=== PATIENT | male | born 1935 | race Two or more races ===

== ENCOUNTER → 2016-04-03 | Outpatient (CLI) | payer MEDICARE, OTHER ==
[~2016-04-03] MED LIST: ASPI-231 PO; CILO100T PO; CLON0.1T PO; FURO20TA3 PO; GABA-494 PO; HYDR-2651 PO; Isosorbide Mononitrate PO; LISI10TA6 PO; METOPROLOL PO; PANT40TA2 PO; SIMV-8 PO; SUCR1TAB38 OR; TAMS0.4C36 PO
[2016-04-03 11:17] LABS: DEFINITIVE VIEW TRANSMISSION; Hematocrit 36.8 % (41.0-53.0); Hemoglobin 11.7 g/dL (13.5-17.5); Mean Corpuscular Hemoglobin 25.3 pg (28.0-32.0); Mean Corpuscular Hgb Conc. 31.9 g/dL (32.0-36.0); Mean Corpuscular Volume 79.2 fL (80.0-100.0); Mean Platelet Volume 9.1 fL (7.4-10.4); Platelet Count (auto) 223 10^3/uL (140-450); Red Cell Distribution Width 16.3 % (11.6-16.0); White Blood Cell 11.9 10^3/uL (4.4-10.8)
[2016-04-03 11:23] LABS: INR 1.1 (0.9-1.15); Prothrombin Time 11.3 sec (9.37-12.3)
[2016-04-03 11:37] LABS: Metamyelocytes % 0; Myelocytes % 0; Promyelocytes % 0; Reactive Lymphocytes 0
[2016-04-03 11:41] LABS: Albumin 3.8 g/dL (3.4-5.0); BUN/Creatinine Ratio 20.1; Bilirubin, Total 0.9 mg/dL (0.2-1.0); Calcium 9.1 mg/dL (8.5-10.1); Potassium 4.1 mmol/L (3.5-5.1); Total Protein 7.5 g/dL (6.4-8.2)
[2016-04-03 15:45] LABS: Anisocytosis Slight; Burr Cells FEW; Hypochromia Slight; Ovalocytes FEW; Platelet Estimate Adequate
== END | disposition home or self-care (01) ==
LOC: LAB 10:00
PROVIDERS: ATTEND Internal Medicine Cardiovascular Disease
DX: Z01.812 Encounter for preprocedural laboratory examination (principal); I82.1 Thrombophlebitis migrans
CPT/HCPCS: 36415; 80053; 85007; 85027; 85610; 85730

== ENCOUNTER 2016-04-05 10:29 | Day surgery (SDC) | payer MEDICARE, OTHER ==
[2016-04-05] MEDS ORDERED: ceFAZolin 1GM/50ML D5W 50 ML IV ONE (11:45)
[2016-04-05] MEDS ORDERED: LIDOCAINE 2%HCL (LOCAL ANESTH.) INJ 20ML MDV ONE (13:54)
[2016-04-05] MEDS ORDERED: VANCOMYCIN 1GM/250ML D5W 250 ML IV ONE (13:55)
[2016-04-05] MEDS ORDERED: VANCOMYCIN HCL 1000 MG VL ONE (13:56)
[2016-04-05] MEDS ORDERED: MIDAZOLAM HCL 1MG/1ML-2 ML VIAL ONE (14:09)
[2016-04-05] MEDS ORDERED: fentaNYL CITRATE 100 MCG/2 ML VL ONE (14:09)
[2016-04-06] MEDS ORDERED: VANCOMYCIN 1GM/250ML D5W 250 ML IV ONE (14:00)
== END 2016-04-05 17:48 | disposition home or self-care (01) ==
LOC: CATH 10:29
PROVIDERS: ATTEND Internal Medicine Cardiovascular Disease
DX: T82.111A Breakdown (mechanical) of cardiac pulse generator (battery), initial encounter (principal); I50.9 Heart failure, unspecified; K21.9 Gastro-esophageal reflux disease without esophagitis; Z95.0 Presence of cardiac pacemaker; I10 Essential (primary) hypertension; N40.0 Benign prostatic hyperplasia without lower urinary tract symptoms; I25.10 Atherosclerotic heart disease of native coronary artery without angina pectoris; E11.9 Type 2 diabetes mellitus without complications
CPT/HCPCS: 33208; C1785; J0690; J2250; J3010; J3370; J7030; 99152

== ENCOUNTER → 2016-06-21 | Outpatient (CLI) | payer MEDICARE, OTHER ==
[~2016-06-21] MED LIST changes: +FURO40TA4 PO; +METO-169 PO; +POTA10TA51 PO; +SUCR1TAB PO
[2016-06-21 11:09] LABS: Basophils # (auto) 0 uL; Basophils % (auto) 0.2 % (0.0-2.0); DEFINITIVE VIEW TRANSMISSION; Eosinophils # (auto) 0.1 uL; Eosinophils % (auto) 0.3 % (0.0-7.0); Hematocrit 37.5 % (41.0-53.0); Hemoglobin 12.2 g/dL (13.5-17.5); Lymphocytes # (auto) 6.4 uL; Lymphocytes % (auto) 31.7 % (10.0-50.0); Mean Corpuscular Hgb Conc. 32.5 g/dL (32.0-36.0); Mean Corpuscular Volume 83.1 fL (80.0-100.0); Mean Platelet Volume 8.1 fL (7.4-10.4); Monocytes # (auto) 1.2 uL; Monocytes % (auto) 6.1 % (0.0-12.0); Neutrophils # (auto) 12.5 uL; Neutrophils % (auto) 61.7 % (37.0-80.0); Platelet Count (auto) 266 10^3/uL (140-450); Red Cell Distribution Width 20.4 % (11.6-16.0); White Blood Cell 20.3 10^3/uL (4.4-10.8)
[2016-06-21 11:35] LABS: Albumin 3.5 g/dL (3.4-5.0); BUN/Creatinine Ratio 21.5; Bilirubin, Total 1.2 mg/dL (0.2-1.0); Calcium 9.2 mg/dL (8.5-10.1); Total Protein 7.9 g/dL (6.4-8.2)
== END | disposition home or self-care (01) ==
LOC: LAB 10:21
PROVIDERS: ATTEND Internal Medicine
DX: R30.0 Dysuria (principal); R50.9 Fever, unspecified
CPT/HCPCS: 36415; 80053; 85025; 87040; 87086

== ENCOUNTER → 2016-07-04 | Outpatient (CLI) | payer MEDICARE, OTHER ==
[~2016-07-04] VITALS: Ht 154.9 cm; Wt 72.6 kg
[~2016-07-04] MED LIST changes: +ADENOSINE 61 MG in GIVE UN-DILUTED 0 ML IV STA; -FURO20TA3 PO; -HYDR-2651 PO; -METOPROLOL PO; -SUCR1TAB38 OR
== END | disposition home or self-care (01) ==
LOC: XY 10:57
PROVIDERS: ATTEND Internal Medicine Cardiovascular Disease
DX: I20.9 Angina pectoris, unspecified (principal)
CPT/HCPCS: 78452; 93017; A9500; J0153

== ENCOUNTER → 2016-09-26 | Day surgery (SDC) | payer MEDICARE, OTHER ==
[2016-09-22 10:04] LABS: CONDITION Y; DEFINITIVE SEE PRINTOUT; Hematocrit 37.8 % (41.0-53.0); Hemoglobin 12.3 g/dL (13.5-17.5); Mean Corpuscular Hemoglobin 28.4 pg (28.0-32.0); Mean Corpuscular Hgb Conc. 32.5 g/dL (32.0-36.0); Mean Corpuscular Volume 87.1 fL (80.0-100.0); Mean Platelet Volume 7.9 fL (7.4-10.4); Platelet Count (auto) 236 10^3/uL (140-450); Red Cell Distribution Width 16.6 % (11.6-16.0); White Blood Cell 14.3 10^3/uL (4.4-10.8)
[2016-09-22 10:12] LABS: Metamyelocytes % 0; Myelocytes % 0; Promyelocytes % 0; Reactive Lymphocytes 0
[2016-09-22 10:13] LABS: Albumin 3.7 g/dL (3.4-5.0); BUN/Creatinine Ratio 12.4; Calcium 8.6 mg/dL (8.5-10.1); Potassium 4.1 mmol/L (3.5-5.1)
[2016-09-22 10:15] LABS: Bilirubin, Total 0.7 mg/dL (0.2-1.0); Total Protein 7.9 g/dL (6.4-8.2)
[2016-09-22 10:19] LABS: INR 1.02 (0.9-1.15); Partial Thromboplastin Time 26.1 sec (22.64-33.71); Prothrombin Time 11.1 sec (9.37-12.3)
[2016-09-22 10:25] LABS: Platelet Estimate Adequate; RBC Morphology Normal
[2016-09-22 10:26] LABS: Urine Bilirubin Negative (Negative); Urine Color Yellow (Yellow); Urine Glucose Normal (Normal); Urine Ketone Negative (Negative); Urine RBC 2 /hpf (0 - 3); Urine Squamous Epithelial Cell FEW /hpf (<5); Urine Urobilinogen Normal (Negative); Urine WBC Clumps PRESENT /hpf (None Seen)
[2016-09-22 10:27] LABS: Urine Blood 1+ /uL (Negative); Urine Nitrite POSITIVE (Negative)
[~2016-09-26] VITALS: Ht 152.4 cm; Wt 75.3 kg
[~2016-09-26] MED LIST changes: -ADENOSINE 61 MG in GIVE UN-DILUTED 0 ML IV STA; +DEXAMETHASONE SOD PHOS 10MG/1ML VIAL INJ ONE; +GENTAMICIN SULF 80 MG/2 ML VIAL IV ONE; +HYDROmorphone HCL 2 MG/ML VL IV PRN; +KETOROLAC TROMETH 30 MG/ML 1ML VIAL IV ONE; +LABETALOL HCL 5 MG/ML 4ML SYRINGE IV PRN; +MEPERIDINE HCL (50 MG/ML) 1 ML VIAL ONE; +MIDAZOLAM HCL 1MG/1ML-2 ML VIAL IV PRN; +MIDAZOLAM HCL 1MG/1ML-2 ML VIAL ONE; +MORPHINE SULF INJ 2 MG/ML SYRINGE 1ML IV PRN; +ONDANSETRON HCL 4 MG/2 ML VIAL IV ONE; +PHENYLEPHRINE HCL 10 MG/ML VL IV ONE; +PROPOFOL 10 MG/ML 20 ML IV ONE; +SUCCINYLCHOLINE CHLORIDE 20 MG/ML 10ML VIAL IV ONE; +ceFAZolin 1GM/50ML D5W 50 ML IV ONE; +ePHEDrine SULFATE 50 MG/ML AMP IV PRN; +fentaNYL CITRATE 100 MCG/2 ML VL ONE
[2016-09-26 15:21] VITALS: BP 137/74
== END | disposition home or self-care (01) ==
LOC: SUR 09:33
PROVIDERS: ATTEND Urology
DX: N40.1 Benign prostatic hyperplasia with lower urinary tract symptoms (principal); I50.9 Heart failure, unspecified; Z95.1 Presence of aortocoronary bypass graft; Z95.0 Presence of cardiac pacemaker; Z87.891 Personal history of nicotine dependence; Z90.49 Acquired absence of other specified parts of digestive tract; K21.9 Gastro-esophageal reflux disease without esophagitis; Z86.2 Personal history of diseases of the blood and blood-forming organs and certain disorders involving the immune mechanism
CPT/HCPCS: 36415; 52601; 80053; 81001; 85007; 85027; 85610; 85730; 87086; 87088; 87186; J0330; J0690; J1100; J1580; J2175; J2250; J2370; J2704; J3010; 87070; 87075

== ENCOUNTER 2016-10-20 17:25 | Emergency (ER) | payer MEDICARE, OTHER ==
[~2016-10-20] VITALS: Ht 154.9 cm; Wt 67.1 kg
[~2016-10-20 17:25] MED LIST changes: -DEXAMETHASONE SOD PHOS 10MG/1ML VIAL INJ ONE; -GENTAMICIN SULF 80 MG/2 ML VIAL IV ONE; -HYDROmorphone HCL 2 MG/ML VL IV PRN; -KETOROLAC TROMETH 30 MG/ML 1ML VIAL IV ONE; -LABETALOL HCL 5 MG/ML 4ML SYRINGE IV PRN; -MEPERIDINE HCL (50 MG/ML) 1 ML VIAL ONE; -MIDAZOLAM HCL 1MG/1ML-2 ML VIAL IV PRN; -MIDAZOLAM HCL 1MG/1ML-2 ML VIAL ONE; -MORPHINE SULF INJ 2 MG/ML SYRINGE 1ML IV PRN; -ONDANSETRON HCL 4 MG/2 ML VIAL IV ONE; -PHENYLEPHRINE HCL 10 MG/ML VL IV ONE; -PROPOFOL 10 MG/ML 20 ML IV ONE; -SUCCINYLCHOLINE CHLORIDE 20 MG/ML 10ML VIAL IV ONE; -ceFAZolin 1GM/50ML D5W 50 ML IV ONE; -ePHEDrine SULFATE 50 MG/ML AMP IV PRN; -fentaNYL CITRATE 100 MCG/2 ML VL ONE
[2016-10-20 19:26] LABS: Basophils # (auto) 0.1 uL; Basophils % (auto) 0.6 % (0.0-2.0); CONDITION Y; DEFINITIVE SEE PRINTOUT; Eosinophils # (auto) 0.3 uL; Eosinophils % (auto) 1.8 % (0.0-7.0); Hematocrit 30.6 % (41.0-53.0); Hemoglobin 10.3 g/dL (13.5-17.5); Lymphocytes # (auto) 8.3 uL; Lymphocytes % (auto) 53.2 % (10.0-50.0); Mean Corpuscular Hemoglobin 28.3 pg (28.0-32.0); Mean Corpuscular Hgb Conc. 33.5 g/dL (32.0-36.0); Mean Corpuscular Volume 84.6 fL (80.0-100.0); Mean Platelet Volume 7.2 fL (7.4-10.4); Monocytes # (auto) 1.1 uL; Monocytes % (auto) 7.3 % (0.0-12.0); Neutrophils # (auto) 5.8 uL; Neutrophils % (auto) 37.1 % (37.0-80.0); Platelet Count (auto) 288 10^3/uL (140-450); White Blood Cell 15.7 10^3/uL (4.4-10.8)
[2016-10-20 19:37] LABS: INR 1.01 (0.9-1.15); Partial Thromboplastin Time 28.3 sec (22.64-33.71)
[2016-10-20 19:39] LABS: Albumin 3.1 g/dL (3.4-5.0); BUN/Creatinine Ratio 19.5; Bilirubin, Total 0.5 mg/dL (0.2-1.0); Calcium 8.3 mg/dL (8.5-10.1); Potassium 4.6 mmol/L (3.5-5.1); Total Protein 6.8 g/dL (6.4-8.2)
[2016-10-20 20:37] VITALS: BP 150/73
[2016-10-20] MEDS ORDERED: cefTRIAXone 1GM/50ML D5W 50 ML IV ONE (21:00)
== END 2016-10-20 23:35 | disposition home or self-care (01) ==
LOC: ER 17:27
DX: N45.1 Epididymitis (principal); N45.2 Orchitis; Z79.899 Other long term (current) drug therapy; Z79.82 Long term (current) use of aspirin
CPT/HCPCS: 36415; 76870; 80053; 85025; 85610; 85730; 96365; 99285; J0696; J7030

== ENCOUNTER → 2017-01-25 | Outpatient (CLI) | payer MEDICARE, OTHER | END | disposition home or self-care (01) | LOC: LAB 15:15 | PROVIDERS: ATTEND Urology | DX: N40.0 Benign prostatic hyperplasia without lower urinary tract symptoms (principal); J44.9 Chronic obstructive pulmonary disease, unspecified | CPT/HCPCS: 87086; 87088; 87186 ==

== ENCOUNTER → 2017-03-05 | Outpatient (CLI) | payer MEDICARE, OTHER ==
[~2017-03-05] MED LIST changes: -GABA-494 PO; +GABA100C9 PO
[2017-03-05 09:17] LABS: Hematocrit 34.9 % (41.0-53.0); Hemoglobin 11.2 g/dL (13.5-17.5); Mean Corpuscular Hemoglobin 26.4 pg (28.0-32.0); Mean Corpuscular Hgb Conc. 32.1 g/dL (32.0-36.0); Mean Corpuscular Volume 82.2 fL (80.0-100.0); Platelet Count (auto) 269 10^3/uL (140-450); Red Blood Cells 4.25 10^6/uL (4.5-5.90); Red Cell Distribution Width 16.8 % (11.8-14.3); White Blood Cell 12.5 10^3/uL (4.4-10.8)
[2017-03-05 09:22] LABS: Cholesterol 121 mg/dL (< 200); HDL Cholesterol 60 mg/dL (40-59); LDL Cholesterol 59 mg/dL (< 100); Triglycerides 67 mg/dL (< 150)
[2017-03-05 09:45] LABS: Band Neutrophils % (manual) 0; Basophils % (manual) 0 (0.0-2.0); Metamyelocytes % 0
[2017-03-05 09:46] LABS: Blast Cells 0; Myelocytes % 0; Promyelocytes % 0; Reactive Lymphocytes 0
[2017-03-05 10:06] LABS: Free T4 (Free Thyroxine) 1.14 ng/dL (0.89-1.76)
[2017-03-05 10:29] LABS: Eosinophils % (manual) 1 (0-7); Lymphocytes % (manual) 58 (10.0-50.0); Monocytes % (manual) 5 (0-12)
[2017-03-05 10:36] LABS: Prostate Specific Antigen 5.31 ng/mL (0.0-4.0)
== END | disposition home or self-care (01) ==
LOC: LAB 08:33
PROVIDERS: ATTEND Internal Medicine
DX: E11.9 Type 2 diabetes mellitus without complications (principal); I10 Essential (primary) hypertension; N40.0 Benign prostatic hyperplasia without lower urinary tract symptoms
CPT/HCPCS: 36415; 80061; 83036; 84153; 84154; 84439; 84443; 85007; 85027

== ENCOUNTER → 2017-04-16 | Day surgery (SDC) | payer MEDICARE, OTHER ==
[2017-04-13 10:03] LABS: Hemoglobin 11.8 g/dL (13.5-17.5); White Blood Cell 15.1 10^3/uL (4.4-10.8)
[2017-04-13 10:05] LABS: Hematocrit 36.8 % (41.0-53.0); Mean Corpuscular Hemoglobin 26.7 pg (28.0-32.0); Mean Corpuscular Hgb Conc. 32.1 g/dL (32.0-36.0); Mean Corpuscular Volume 83.1 fL (80.0-100.0); Platelet Count (auto) 220 10^3/uL (140-450); Red Blood Cells 4.43 10^6/uL (4.5-5.90); Red Cell Distribution Width 16.5 % (11.8-14.3)
[2017-04-13 10:18] LABS: Urine Bacteria MANY /hpf (None Seen); Urine Blood 1+ /uL (Negative); Urine Mucus FEW (None Seen); Urine Specific Gravity 1.017 (1.001-1.035); Urine WBC 1839 /hpf (0 - 3); Urine WBC Clumps PRESENT /hpf (None Seen)
[2017-04-13 10:19] LABS: Albumin 3.9 g/dL (3.4-5.0); BUN/Creatinine Ratio 22.9; Potassium 4.1 mmol/L (3.5-5.1)
[2017-04-13 10:22] LABS: Bilirubin, Total 0.6 mg/dL (0.2-1.0)
[2017-04-13 10:25] LABS: Prothrombin Time 10.9 sec (9.37-12.3)
[2017-04-13 11:25] LABS: Band Neutrophils % (manual) 0; Basophils % (manual) 0 (0.0-2.0); Blast Cells 0; Metamyelocytes % 0; Myelocytes % 0; Promyelocytes % 0; Reactive Lymphocytes 0
[2017-04-13 15:42] LABS: Monocytes % (manual) 4 (0-12)
[2017-04-13 15:44] LABS: Eosinophils % (manual) 2 (0-7); Lymphocytes % (manual) 63 (10.0-50.0)
[~2017-04-16] VITALS: Ht 152.4 cm; Wt 72.6 kg
[~2017-04-16] MED LIST changes: +ceFAZolin 1GM/50ML 50 ML IV ONE
== END | disposition home or self-care (01) ==
LOC: SUR 07:15
PROVIDERS: ATTEND Urology
DX: N40.1 Benign prostatic hyperplasia with lower urinary tract symptoms (principal); Z53.8 Procedure and treatment not carried out for other reasons; N39.0 Urinary tract infection, site not specified; E66.9 Obesity, unspecified; Z68.31 Body mass index [BMI] 31.0-31.9, adult; I50.9 Heart failure, unspecified; Z95.1 Presence of aortocoronary bypass graft; J44.9 Chronic obstructive pulmonary disease, unspecified; Z87.891 Personal history of nicotine dependence; Z95.0 Presence of cardiac pacemaker; Z90.49 Acquired absence of other specified parts of digestive tract
CPT/HCPCS: 36415; 80053; 81001; 85007; 85027; 85610; 85730; J0690

== ENCOUNTER → 2017-05-14 | Day surgery (SDC) | payer MEDICARE, OTHER ==
[~2017-05-14] VITALS: Ht 30.5 cm; Wt 0.5 kg
[~2017-05-14] MED LIST changes: +BELLADONNA ALKAL/OPIUM (16.2/30MG) RECT SUPP PR ONE; +DEXAMETHASONE SOD PHOS 10MG/1ML VIAL INJ ONE; +KETOROLAC TROMETH 30 MG/ML 1ML VIAL IV ONE; +KETOROLAC TROMETH 30 MG/ML 1ML VIAL ONE; +LABETALOL HCL 5 MG/ML 4ML SYRINGE IV PRN; +MEPERIDINE HCL (50 MG/ML) 1 ML VIAL ONE; +MIDAZOLAM HCL 1MG/1ML-2 ML VIAL IV PRN; +MIDAZOLAM HCL 1MG/1ML-2 ML VIAL ONE; +MORPHINE SULFATE 4 MG/ML SYR/VIAL IV ONE; +MORPHINE SULFATE 4 MG/ML SYR/VIAL IV PRN; +ONDANSETRON HCL 4 MG/2 ML VIAL IV ONE; +PROPOFOL 10 MG/ML 20 ML IV ONE; +ePHEDrine SULFATE 50 MG/ML AMP IV PRN; +fentaNYL CITRATE 100 MCG/2 ML VL IV ONE; +fentaNYL CITRATE 100 MCG/2 ML VL ONE
[2017-05-14 07:46] LABS: Mean Corpuscular Hgb Conc. 32.5 g/dL (32.0-36.0); Mean Corpuscular Volume 82.2 fL (80.0-100.0); White Blood Cell 12.8 10^3/uL (4.4-10.8)
[2017-05-14 07:51] LABS: Hematocrit 33.9 % (41.0-53.0); Mean Corpuscular Hemoglobin 26.7 pg (28.0-32.0); Platelet Count (auto) 159 10^3/uL (140-450); Red Blood Cells 4.12 10^6/uL (4.5-5.90); Red Cell Distribution Width 15.6 % (11.8-14.3)
[2017-05-14 07:58] LABS: BUN/Creatinine Ratio 23.1; Calcium 8.9 mg/dL (8.5-10.1); Potassium 4.2 mmol/L (3.5-5.1)
[2017-05-14 08:06] LABS: INR 0.97 (0.9-1.15); Partial Thromboplastin Time 25.4 sec (22.64-33.71); Prothrombin Time 10.6 sec (9.37-12.3)
[2017-05-14 08:07] LABS: Band Neutrophils % (manual) 0; Basophils % (manual) 0 (0.0-2.0); Blast Cells 0; Metamyelocytes % 0; Myelocytes % 0; Promyelocytes % 0
[2017-05-14 09:09] LABS: Eosinophils % (manual) 3 (0-7); Lymphocytes % (manual) 50 (10.0-50.0); Monocytes % (manual) 5 (0-12); Reactive Lymphocytes 10
[2017-05-14 12:13] VITALS: BP 156/79
== END | disposition home or self-care (01) ==
LOC: SUR 06:08
PROVIDERS: ATTEND Urology
DX: N40.1 Benign prostatic hyperplasia with lower urinary tract symptoms (principal); I50.9 Heart failure, unspecified; Z95.1 Presence of aortocoronary bypass graft; J44.9 Chronic obstructive pulmonary disease, unspecified; Z87.891 Personal history of nicotine dependence
CPT/HCPCS: 36415; 52601; 80048; 85007; 85027; 85610; 85730; J0690; J1100; J1885; J2175; J2250; J2704; J3010

== ENCOUNTER → 2017-09-13 | Outpatient (CLI) | payer MEDICARE, OTHER ==
[~2017-09-13] MED LIST changes: -BELLADONNA ALKAL/OPIUM (16.2/30MG) RECT SUPP PR ONE; -DEXAMETHASONE SOD PHOS 10MG/1ML VIAL INJ ONE; -KETOROLAC TROMETH 30 MG/ML 1ML VIAL IV ONE; -KETOROLAC TROMETH 30 MG/ML 1ML VIAL ONE; -LABETALOL HCL 5 MG/ML 4ML SYRINGE IV PRN; -MEPERIDINE HCL (50 MG/ML) 1 ML VIAL ONE; -MIDAZOLAM HCL 1MG/1ML-2 ML VIAL IV PRN; -MIDAZOLAM HCL 1MG/1ML-2 ML VIAL ONE; -MORPHINE SULFATE 4 MG/ML SYR/VIAL IV ONE; -MORPHINE SULFATE 4 MG/ML SYR/VIAL IV PRN; -ONDANSETRON HCL 4 MG/2 ML VIAL IV ONE; -PROPOFOL 10 MG/ML 20 ML IV ONE; -ceFAZolin 1GM/50ML 50 ML IV ONE; -ePHEDrine SULFATE 50 MG/ML AMP IV PRN; -fentaNYL CITRATE 100 MCG/2 ML VL IV ONE; -fentaNYL CITRATE 100 MCG/2 ML VL ONE
[2017-09-13 12:37] LABS: Hemoglobin 10.6 g/dL (13.5-17.5)
[2017-09-13 12:38] LABS: Hematocrit 33.1 % (41.0-53.0); Mean Corpuscular Hemoglobin 25.8 pg (28.0-32.0); Mean Corpuscular Hgb Conc. 31.9 g/dL (32.0-36.0); Mean Corpuscular Volume 81.1 fL (80.0-100.0); Platelet Count (auto) 208 10^3/uL (140-450); Red Blood Cells 4.08 10^6/uL (4.5-5.90); Red Cell Distribution Width 17.7 % (11.8-14.3); White Blood Cell 16.7 10^3/uL (4.4-10.8)
[2017-09-13 12:43] LABS: Band Neutrophils % (manual) 0; Basophils % (manual) 0 (0.0-2.0); Blast Cells 0; Metamyelocytes % 0; Myelocytes % 0; Promyelocytes % 0
[2017-09-13 13:22] LABS: Eosinophils % (manual) 2 (0-7); Lymphocytes % (manual) 61 (10.0-50.0); Monocytes % (manual) 5 (0-12); Reactive Lymphocytes 14
[2017-09-13 13:46] LABS: Albumin 3.6 g/dL (3.4-5.0); Bilirubin, Total 0.4 mg/dL (0.2-1.0); Calcium 8.3 mg/dL (8.5-10.1); Potassium 4.2 mmol/L (3.5-5.1); Total Protein 7.7 g/dL (6.4-8.2)
== END | disposition home or self-care (01) ==
LOC: LAB 12:10
PROVIDERS: ATTEND Internal Medicine
DX: I11.0 Hypertensive heart disease with heart failure (principal); I50.9 Heart failure, unspecified; J44.9 Chronic obstructive pulmonary disease, unspecified; E11.9 Type 2 diabetes mellitus without complications; K21.9 Gastro-esophageal reflux disease without esophagitis; E78.5 Hyperlipidemia, unspecified; Z95.0 Presence of cardiac pacemaker; Z79.899 Other long term (current) drug therapy; Z79.82 Long term (current) use of aspirin
CPT/HCPCS: 36415; 80053; 84439; 84443; 85007; 85027; 87086; 87088; 87186

== ENCOUNTER 2017-09-20 10:42 | Inpatient (IN) | payer MEDICARE, OTHER ==
[~2017-09-20] VITALS: Ht 157.5 cm; Wt 77.0 kg
[2017-09-20] MEDS: SODIUM CHLORIDE 0.9% 1,000 ML IV SCH ×2 (03:00→14:11)
[2017-09-20] MEDS ORDERED: SODIUM CHLORIDE 0.9% 500 ML IV ONE (11:02)
[2017-09-20] MEDS ORDERED: cefTRIAXone 1GM/10ml IVPUSH 10 ML IV ONE ×2 (11:15→14:00)
[2017-09-20 11:23] LABS: Urine Bacteria MANY /hpf (None Seen); Urine Blood TRACE /uL (Negative); Urine Hyaline Cast FEW /lpf (0 - 2); Urine Mucus FEW (None Seen); Urine Specific Gravity 1.013 (1.001-1.035); Urine WBC 297 /hpf (0 - 3)
[2017-09-20 11:42] LABS: Hematocrit 34.9 % (41.0-53.0); Hemoglobin 10.9 g/dL (13.5-17.5); Mean Corpuscular Hgb Conc. 31.4 g/dL (32.0-36.0); Mean Corpuscular Volume 82.8 fL (80.0-100.0); Platelet Count (auto) 298 10^3/uL (140-450); Red Blood Cells 4.22 10^6/uL (4.5-5.90); White Blood Cell 20.3 10^3/uL (4.4-10.8)
[2017-09-20 12:00] LABS: Albumin 3.5 g/dL (3.4-5.0); BUN/Creatinine Ratio 12.8; Bilirubin, Total 0.5 mg/dL (0.2-1.0); Calcium 8.5 mg/dL (8.5-10.1); Potassium 4.3 mmol/L (3.5-5.1); Total Protein 7.6 g/dL (6.4-8.2)
[2017-09-20 12:29] LABS: Band Neutrophils % (manual) 0; Basophils % (manual) 0 (0.0-2.0); Blast Cells 0; Metamyelocytes % 0; Promyelocytes % 0; Reactive Lymphocytes 0
[2017-09-20 12:39] LABS: Lymphocytes % (manual) 73 (10.0-50.0); Monocytes % (manual) 4 (0-12); Myelocytes % 0
[2017-09-20 12:40] LABS: Eosinophils % (manual) 2 (0-7)
[2017-09-20] MEDS ORDERED: HYDROcodone-ACET 5/325MG TAB PO PRN (14:00)
[2017-09-20] MEDS ORDERED: MORPHINE SULFATE 4 MG/ML SYR/VIAL IV PRN (14:00)
[2017-09-20] MEDS ORDERED: cloNIDine HCL 0.1 MG TAB PO PRN ×2 (14:00)
[2017-09-20] MEDS ORDERED: LORazepam 0.5 MG TAB PO PRN (14:00)
[2017-09-20] MEDS ORDERED: TEMAZEPAM 15 MG CAP PO PRN (14:00)
[2017-09-20] MEDS ORDERED: PROMETHAZINE HCL 25 MG/ML 1ML IV PRN (14:00)
[2017-09-20] MEDS ORDERED: ACETAMINOPHEN 500 MG TAB PO PRN (14:00)
[2017-09-20] MEDS ORDERED: NITROGLYCERIN 0.4 MG SL TAB SL PRN (14:00)
[2017-09-20] MEDS ORDERED: MORPHINE SULF INJ 2 MG/ML SYRINGE 1ML IV PRN (14:00)
[2017-09-20] MEDS: GABAPENTIN 100 MG CAP PO SCH ×2 (14:56→21:50)
[2017-09-20 16:43] VITALS: BP 183/83
[2017-09-20] MEDS: TAMSULOSIN HYDROCHLORIDE 0.4 MG CAP PO SCH (17:22)
[2017-09-20] MEDS: SUCRALFATE 1 GM TAB PO SCH (17:22)
[2017-09-20 21:49] VITALS: BP 168/64
[2017-09-20] MEDS: ATORVASTATIN 20 MG TAB PO SCH (21:50)
[2017-09-20] MEDS: METOPROLOL SUCCINATE XL 50 MG TAB PO SCH (22:00)
[2017-09-21 05:09] VITALS: BP 146/65
[2017-09-21 05:46] LABS: Hemoglobin 11.1 g/dL (13.5-17.5); Red Cell Distribution Width 17.8 % (11.8-14.3); White Blood Cell 15.2 10^3/uL (4.4-10.8)
[2017-09-21 05:49] LABS: Hematocrit 34.1 % (41.0-53.0); Mean Corpuscular Hemoglobin 26.3 pg (28.0-32.0); Mean Corpuscular Hgb Conc. 32.4 g/dL (32.0-36.0); Mean Corpuscular Volume 81.2 fL (80.0-100.0); Platelet Count (auto) 252 10^3/uL (140-450)
[2017-09-21 06:20] LABS: Basophils % (manual) 0 (0.0-2.0); Blast Cells 0; Eosinophils % (manual) 0 (0-7); Metamyelocytes % 0; Myelocytes % 0; Promyelocytes % 0; Reactive Lymphocytes 0
[2017-09-21] MEDS: SUCRALFATE 1 GM TAB PO SCH ×2 (06:28→17:11)
[2017-09-21 06:54] LABS: Band Neutrophils % (manual) 1; Lymphocytes % (manual) 69 (10.0-50.0); Monocytes % (manual) 3 (0-12)
[2017-09-21 09:00] VITALS: BP 148/73
[2017-09-21] MEDS: cefTRIAXone 1GM/10ml IVPUSH 10 ML IV SCH (09:54)
[2017-09-21] MEDS: CILOSTAZOL 100 MG TAB PO SCH (09:55)
[2017-09-21] MEDS: GABAPENTIN 100 MG CAP PO SCH ×2 (09:55→21:54)
[2017-09-21] MEDS: PANTOPRAZOLE 40 MG TAB PO SCH (09:58)
[2017-09-21] MEDS: METOPROLOL SUCCINATE XL 50 MG TAB PO SCH ×2 (09:58→21:54)
[2017-09-21] MEDS: LISINOPRIL 20 MG TAB PO SCH (09:59)
[2017-09-21] MEDS: ISOSORBIDE MONONITRATE 60 MG TAB PO SCH (09:59)
[2017-09-21] MEDS: SODIUM CHLORIDE 0.9% 1,000 ML IV SCH ×2 (10:03→20:15)
[2017-09-21 13:00] VITALS: BP 149/70
[2017-09-21 17:00] VITALS: BP 131/54
[2017-09-21] MEDS: TAMSULOSIN HYDROCHLORIDE 0.4 MG CAP PO SCH (17:12)
[2017-09-21] MEDS: ATORVASTATIN 20 MG TAB PO SCH (21:53)
[2017-09-21 21:56] VITALS: BP 127/77
[2017-09-22 05:08] VITALS: BP 144/64
[2017-09-22 05:38] LABS: Hematocrit 31.2 % (41.0-53.0); Mean Corpuscular Hemoglobin 26.2 pg (28.0-32.0); Mean Corpuscular Hgb Conc. 32.2 g/dL (32.0-36.0); Mean Corpuscular Volume 81.2 fL (80.0-100.0); Platelet Count (auto) 237 10^3/uL (140-450); Red Blood Cells 3.84 10^6/uL (4.5-5.90); Red Cell Distribution Width 17.7 % (11.8-14.3); White Blood Cell 15.8 10^3/uL (4.4-10.8)
[2017-09-22 05:45] LABS: Band Neutrophils % (manual) 0; Basophils % (manual) 0 (0.0-2.0); Blast Cells 0; Eosinophils % (manual) 0 (0-7); Metamyelocytes % 0; Myelocytes % 0; Promyelocytes % 0
[2017-09-22 06:06] LABS: Albumin 2.9 g/dL (3.4-5.0); BUN/Creatinine Ratio 17.1; Bilirubin, Total 0.4 mg/dL (0.2-1.0); Calcium 8.1 mg/dL (8.5-10.1); Potassium 4.3 mmol/L (3.5-5.1); Total Protein 6.3 g/dL (6.4-8.2)
[2017-09-22] MEDS: SODIUM CHLORIDE 0.9% 1,000 ML IV SCH ×2 (06:13→16:53)
[2017-09-22] MEDS: SUCRALFATE 1 GM TAB PO SCH ×2 (06:14→17:43)
[2017-09-22] MEDS: ALUM & MAG HYDROX-SIMETH LIQ(MAALOX) 30 ML GT PRN (07:59)
[2017-09-22 09:00] VITALS: BP 152/80
[2017-09-22] MEDS: cefTRIAXone 1GM/10ml IVPUSH 10 ML IV SCH (10:29)
[2017-09-22] MEDS: CILOSTAZOL 100 MG TAB PO SCH (10:30)
[2017-09-22] MEDS: GABAPENTIN 100 MG CAP PO SCH ×2 (10:31→22:38)
[2017-09-22] MEDS: ASPirin-EC 81 mg tab PO SCH (10:31)
[2017-09-22] MEDS: METOPROLOL SUCCINATE XL 50 MG TAB PO SCH ×2 (10:32→22:39)
[2017-09-22] MEDS: LISINOPRIL 20 MG TAB PO SCH (10:33)
[2017-09-22] MEDS: PANTOPRAZOLE 40 MG TAB PO SCH (10:33)
[2017-09-22] MEDS: ISOSORBIDE MONONITRATE 60 MG TAB PO SCH (10:34)
[2017-09-22 11:57] LABS: Lymphocytes % (manual) 70 (10.0-50.0); Monocytes % (manual) 3 (0-12); Reactive Lymphocytes 3
[2017-09-22 13:00] VITALS: BP 166/74
[2017-09-22 17:00] VITALS: BP 145/89
[2017-09-22] MEDS: TAMSULOSIN HYDROCHLORIDE 0.4 MG CAP PO SCH (17:43)
[2017-09-22 22:00] VITALS: BP 155/72
[2017-09-22] MEDS: ATORVASTATIN 20 MG TAB PO SCH (22:38)
[2017-09-23 05:00] VITALS: BP 152/69
[2017-09-23] MEDS: SODIUM CHLORIDE 0.9% 1,000 ML IV SCH ×3 (05:32→21:38)
[2017-09-23 05:38] LABS: Hematocrit 35.3 % (41.0-53.0); Hemoglobin 11.5 g/dL (13.5-17.5); Mean Corpuscular Hemoglobin 26.3 pg (28.0-32.0); Mean Corpuscular Hgb Conc. 32.5 g/dL (32.0-36.0); Mean Corpuscular Volume 81.1 fL (80.0-100.0); Platelet Count (auto) 280 10^3/uL (140-450); Red Blood Cells 4.36 10^6/uL (4.5-5.90); Red Cell Distribution Width 17.8 % (11.8-14.3); White Blood Cell 18.6 10^3/uL (4.4-10.8)
[2017-09-23 05:40] LABS: Band Neutrophils % (manual) 0; Basophils % (manual) 0 (0.0-2.0); Blast Cells 0; Eosinophils % (manual) 0 (0-7); Metamyelocytes % 0; Myelocytes % 0; Promyelocytes % 0
[2017-09-23 05:57] LABS: Albumin 3.4 g/dL (3.4-5.0); BUN/Creatinine Ratio 15.3; Bilirubin, Total 0.5 mg/dL (0.2-1.0); Calcium 8.8 mg/dL (8.5-10.1); Potassium 4.2 mmol/L (3.5-5.1); Total Protein 7.2 g/dL (6.4-8.2)
[2017-09-23] MEDS: SUCRALFATE 1 GM TAB PO SCH ×2 (06:47→17:00)
[2017-09-23] MEDS: ALUM & MAG HYDROX-SIMETH LIQ(MAALOX) 30 ML GT PRN ×2 (06:48→23:58)
[2017-09-23 07:17] LABS: Lymphocytes % (manual) 76 (10.0-50.0); Monocytes % (manual) 2 (0-12); Reactive Lymphocytes 15
[2017-09-23] MEDS: HYDROmorphone HCL 2 MG/ML VL IV PRN ×4 (07:35→16:30)
[2017-09-23 09:00] VITALS: BP 157/81
[2017-09-23] MEDS: CILOSTAZOL 100 MG TAB PO SCH (09:49)
[2017-09-23] MEDS: cefTRIAXone 1GM/10ml IVPUSH 10 ML IV SCH (09:49)
[2017-09-23] MEDS: PANTOPRAZOLE 40 MG TAB PO SCH (09:50)
[2017-09-23] MEDS: LISINOPRIL 20 MG TAB PO SCH (09:50)
[2017-09-23] MEDS: GABAPENTIN 100 MG CAP PO SCH ×2 (09:51→21:39)
[2017-09-23] MEDS: ISOSORBIDE MONONITRATE 60 MG TAB PO SCH (09:51)
[2017-09-23] MEDS: METOPROLOL SUCCINATE XL 50 MG TAB PO SCH ×2 (09:52→21:40)
[2017-09-23 13:00] VITALS: BP 132/75
[2017-09-23 17:00] VITALS: BP 162/74
[2017-09-23] MEDS: TAMSULOSIN HYDROCHLORIDE 0.4 MG CAP PO SCH (17:58)
[2017-09-23] MEDS: ATORVASTATIN 20 MG TAB PO SCH (21:39)
[2017-09-23 22:00] VITALS: BP 158/66
[2017-09-24 05:20] VITALS: BP 156/67
[2017-09-24 05:34] LABS: Hemoglobin 10.7 g/dL (13.5-17.5); Mean Corpuscular Volume 81.2 fL (80.0-100.0); Platelet Count (auto) 235 10^3/uL (140-450)
[2017-09-24 05:36] LABS: Hematocrit 32.7 % (41.0-53.0); Mean Corpuscular Hemoglobin 26.5 pg (28.0-32.0); Mean Corpuscular Hgb Conc. 32.6 g/dL (32.0-36.0); Red Blood Cells 4.02 10^6/uL (4.5-5.90); Red Cell Distribution Width 17.8 % (11.8-14.3)
[2017-09-24 05:43] LABS: Basophils % (manual) 0 (0.0-2.0); Blast Cells 0; Eosinophils % (manual) 0 (0-7); Metamyelocytes % 0; Myelocytes % 0; Promyelocytes % 0; Reactive Lymphocytes 0
[2017-09-24 05:54] LABS: Albumin 3.1 g/dL (3.4-5.0); Calcium 8.2 mg/dL (8.5-10.1)
[2017-09-24 05:56] LABS: BUN/Creatinine Ratio 19.8
[2017-09-24 05:59] LABS: Bilirubin, Total 0.5 mg/dL (0.2-1.0); Total Protein 6.5 g/dL (6.4-8.2)
[2017-09-24] MEDS: SUCRALFATE 1 GM TAB PO SCH ×2 (06:31→18:20)
[2017-09-24 06:38] LABS: Band Neutrophils % (manual) 1; Lymphocytes % (manual) 71 (10.0-50.0); Monocytes % (manual) 4 (0-12)
[2017-09-24 08:00] VITALS: BP 122/64
[2017-09-24] MEDS: cefTRIAXone 1GM/10ml IVPUSH 10 ML IV SCH (10:43)
[2017-09-24] MEDS: ASPirin-EC 81 mg tab PO SCH (10:44)
[2017-09-24] MEDS: CILOSTAZOL 100 MG TAB PO SCH (10:45)
[2017-09-24] MEDS: GABAPENTIN 100 MG CAP PO SCH ×2 (10:45→22:23)
[2017-09-24] MEDS: ISOSORBIDE MONONITRATE 60 MG TAB PO SCH (10:45)
[2017-09-24] MEDS: PANTOPRAZOLE 40 MG TAB PO SCH (10:45)
[2017-09-24] MEDS: METOPROLOL SUCCINATE XL 50 MG TAB PO SCH ×2 (10:46→22:24)
[2017-09-24] MEDS: LISINOPRIL 20 MG TAB PO SCH (10:47)
[2017-09-24 13:00] VITALS: BP 171/77
[2017-09-24 17:00] VITALS: BP 158/72
[2017-09-24] MEDS: SODIUM CHLORIDE 0.9% 1,000 ML IV SCH ×2 (18:20→18:21)
[2017-09-24] MEDS: TAMSULOSIN HYDROCHLORIDE 0.4 MG CAP PO SCH (18:20)
[2017-09-24 22:00] VITALS: BP 143/73
[2017-09-24] MEDS: ATORVASTATIN 20 MG TAB PO SCH (22:51)
[2017-09-25] MEDS: ALUM & MAG HYDROX-SIMETH LIQ(MAALOX) 30 ML GT PRN (01:43)
[2017-09-25] MEDS: SODIUM CHLORIDE 0.9% 1,000 ML IV SCH ×2 (03:46→13:46)
[2017-09-25 05:30] VITALS: BP 141/72
[2017-09-25 05:53] LABS: Red Cell Distribution Width 17.8 % (11.8-14.3)
[2017-09-25 05:57] LABS: Hematocrit 33.7 % (41.0-53.0); Mean Corpuscular Hemoglobin 26.3 pg (28.0-32.0); Mean Corpuscular Hgb Conc. 32.7 g/dL (32.0-36.0); Mean Corpuscular Volume 80.6 fL (80.0-100.0); Platelet Count (auto) 219 10^3/uL (140-450); Red Blood Cells 4.18 10^6/uL (4.5-5.90); White Blood Cell 16.6 10^3/uL (4.4-10.8)
[2017-09-25 06:14] LABS: Band Neutrophils % (manual) 0; Basophils % (manual) 0 (0.0-2.0); Blast Cells 0; Metamyelocytes % 0; Myelocytes % 0; Promyelocytes % 0; Reactive Lymphocytes 0
[2017-09-25] MEDS: SUCRALFATE 1 GM TAB PO SCH (06:14)
[2017-09-25 07:43] LABS: Eosinophils % (manual) 1 (0-7); Lymphocytes % (manual) 68 (10.0-50.0); Monocytes % (manual) 5 (0-12)
[2017-09-25 08:33] VITALS: BP 162/79
[2017-09-25] MEDS: cefTRIAXone 1GM/10ml IVPUSH 10 ML IV SCH (09:55)
[2017-09-25] MEDS: CILOSTAZOL 100 MG TAB PO SCH (09:56)
[2017-09-25] MEDS: PANTOPRAZOLE 40 MG TAB PO SCH (09:56)
[2017-09-25] MEDS: METOPROLOL SUCCINATE XL 50 MG TAB PO SCH (09:56)
[2017-09-25] MEDS: LISINOPRIL 20 MG TAB PO SCH (09:57)
[2017-09-25] MEDS: GABAPENTIN 100 MG CAP PO SCH (09:57)
[2017-09-25] MEDS: ISOSORBIDE MONONITRATE 60 MG TAB PO SCH (09:57)
[2017-09-25 11:45] VITALS: BP 148/70
== END 2017-09-25 14:08 | disposition home health service (06) | DRG 872 ==
LOC: ER 10:42 → TELE 10:43 → TELE-CENTR 15:05
PROVIDERS: ADMIT Internal Medicine; ATTEND Family Medicine
DX: A41.9 Sepsis, unspecified organism (principal); N39.0 Urinary tract infection, site not specified; E78.00 Pure hypercholesterolemia, unspecified; I11.0 Hypertensive heart disease with heart failure; I25.10 Atherosclerotic heart disease of native coronary artery without angina pectoris; I50.9 Heart failure, unspecified; K21.9 Gastro-esophageal reflux disease without esophagitis; N40.0 Benign prostatic hyperplasia without lower urinary tract symptoms; E66.3 Overweight; B96.20 Unspecified Escherichia coli [E. coli] as the cause of diseases classified elsewhere; N13.9 Obstructive and reflux uropathy, unspecified; Z81.1 Family history of alcohol abuse and dependence; Z82.49 Family history of ischemic heart disease and other diseases of the circulatory system; Z90.79 Acquired absence of other genital organ(s); Z95.0 Presence of cardiac pacemaker; Z95.1 Presence of aortocoronary bypass graft; Z79.82 Long term (current) use of aspirin; Z90.49 Acquired absence of other specified parts of digestive tract
CPT/HCPCS: 36415; 74176; 80053; 81001; 84154; 85007; 85027; 85652; 86141; 87040; 87086; 87088; 87186; 94761; 96361; 96374; J0696

== ENCOUNTER → 2017-10-02 | Outpatient (CLI) | payer MEDICARE, OTHER ==
[2017-10-02 12:14] LABS: Hemoglobin 11.7 g/dL (13.5-17.5); Red Blood Cells 4.46 10^6/uL (4.5-5.90); Urine Bacteria NONE SEEN /hpf (None Seen); Urine Blood Negative /uL (Negative); Urine Specific Gravity 1.007 (1.001-1.035); Urine WBC 2 /hpf (0 - 3); White Blood Cell 19.4 10^3/uL (4.4-10.8)
[2017-10-02 12:16] LABS: Hematocrit 36.1 % (41.0-53.0); Mean Corpuscular Hemoglobin 26.3 pg (28.0-32.0); Mean Corpuscular Hgb Conc. 32.5 g/dL (32.0-36.0); Mean Corpuscular Volume 80.9 fL (80.0-100.0); Platelet Count (auto) 175 10^3/uL (140-450); Red Cell Distribution Width 17.6 % (11.8-14.3)
[2017-10-02 12:26] LABS: Band Neutrophils % (manual) 0; Basophils % (manual) 0 (0.0-2.0); Blast Cells 0; Eosinophils % (manual) 0 (0-7); Metamyelocytes % 0; Monocytes % (manual) 0 (0-12); Myelocytes % 0; Promyelocytes % 0; Reactive Lymphocytes 0
[2017-10-02 12:55] LABS: Lymphocytes % (manual) 78 (10.0-50.0)
[2017-10-02 13:00] LABS: BUN/Creatinine Ratio 16.7; Calcium 8.8 mg/dL (8.5-10.1); Potassium 4.1 mmol/L (3.5-5.1)
== END | disposition home or self-care (01) ==
LOC: LAB 11:33
PROVIDERS: ATTEND Internal Medicine
DX: N40.0 Benign prostatic hyperplasia without lower urinary tract symptoms (principal); I10 Essential (primary) hypertension
CPT/HCPCS: 36415; 80048; 81001; 84153; 84154; 85007; 85027

== ENCOUNTER → 2017-10-04 | Outpatient (CLI) | payer MEDICARE, OTHER | END | disposition home or self-care (01) | LOC: LAB 08:36 | PROVIDERS: ATTEND Urology | DX: N48.0 Leukoplakia of penis (principal); R35.0 Frequency of micturition | CPT/HCPCS: 84153; 84154 ==

== ENCOUNTER → 2018-01-21 | Outpatient (CLI) | payer MEDICARE, OTHER ==
[2018-01-21 13:57] LABS: Albumin 3.7 g/dL (3.4-5.0); Potassium 4.2 mmol/L (3.5-5.1)
[2018-01-21 14:01] LABS: BUN/Creatinine Ratio 20.7; Bilirubin, Total 0.5 mg/dL (0.2-1.0); Total Protein 7.3 g/dL (6.4-8.2)
[2018-01-21 14:20] LABS: Hemoglobin 11.2 g/dL (13.5-17.5); Mean Corpuscular Hemoglobin 24.4 pg (28.0-32.0); Mean Corpuscular Hgb Conc. 31.4 g/dL (32.0-36.0)
[2018-01-21 14:23] LABS: Hematocrit 35.7 % (41.0-53.0); Mean Corpuscular Volume 77.8 fL (80.0-100.0); Platelet Count (auto) 179 10^3/uL (140-450); Red Blood Cells 4.58 10^6/uL (4.5-5.90); Red Cell Distribution Width 17.1 % (11.8-14.3); White Blood Cell 15.8 10^3/uL (4.4-10.8)
[2018-01-21 14:36] LABS: Band Neutrophils % (manual) 0; Basophils % (manual) 0 (0.0-2.0); Blast Cells 0; Metamyelocytes % 0; Myelocytes % 0; Promyelocytes % 0; Reactive Lymphocytes 0
[2018-01-21 18:05] LABS: Eosinophils % (manual) 1 (0-7); Lymphocytes % (manual) 79 (10.0-50.0); Monocytes % (manual) 2 (0-12)
== END | disposition home or self-care (01) ==
LOC: LAB 13:05
PROVIDERS: ATTEND Internal Medicine
DX: E11.9 Type 2 diabetes mellitus without complications (principal); I10 Essential (primary) hypertension; D64.9 Anemia, unspecified
CPT/HCPCS: 36415; 80053; 82607; 83036; 83540; 83615; 85007; 85027

== ENCOUNTER → 2018-02-14 | Outpatient (CLI) | payer MEDICARE, OTHER ==
[2018-02-14 12:30] LABS: Platelet Count (auto) 202 10^3/uL (140-450)
[2018-02-14 12:35] LABS: Hematocrit 40.1 % (41.0-53.0); Hemoglobin 12.9 g/dL (13.5-17.5); Mean Corpuscular Hemoglobin 24.9 pg (28.0-32.0); Mean Corpuscular Hgb Conc. 32.1 g/dL (32.0-36.0); Mean Corpuscular Volume 77.6 fL (80.0-100.0); Red Blood Cells 5.16 10^6/uL (4.5-5.90); Red Cell Distribution Width 17.3 % (11.8-14.3); White Blood Cell 19.8 10^3/uL (4.4-10.8)
[2018-02-14 13:07] LABS: Blast Cells 0; Metamyelocytes % 0; Myelocytes % 0; Promyelocytes % 0; Reactive Lymphocytes 0
[2018-02-14 13:14] LABS: Albumin 4.3 g/dL (3.4-5.0); Calcium 9.1 mg/dL (8.5-10.1); Potassium 4.2 mmol/L (3.5-5.1)
[2018-02-14 13:17] LABS: BUN/Creatinine Ratio 13.3; Bilirubin, Total 0.7 mg/dL (0.2-1.0); Total Protein 8.3 g/dL (6.4-8.2)
[2018-02-14 13:21] LABS: % Iron Saturation 7.4 % (20-55)
[2018-02-14 13:27] LABS: Band Neutrophils % (manual) 1; Basophils % (manual) 1 (0.0-2.0); Eosinophils % (manual) 2 (0-7); Lymphocytes % (manual) 72 (10.0-50.0); Monocytes % (manual) 3 (0-12)
== END | disposition home or self-care (01) ==
LOC: LAB 11:59
PROVIDERS: ATTEND Internal Medicine
DX: D72.829 Elevated white blood cell count, unspecified (principal); I11.0 Hypertensive heart disease with heart failure; D50.9 Iron deficiency anemia, unspecified; I50.9 Heart failure, unspecified; I25.10 Atherosclerotic heart disease of native coronary artery without angina pectoris; E78.00 Pure hypercholesterolemia, unspecified; Z79.899 Other long term (current) drug therapy
CPT/HCPCS: 36415; 80053; 82728; 83540; 83550; 83615; 85007; 85027

== ENCOUNTER → 2018-04-24 | Outpatient (CLI) | payer MEDICARE, OTHER | END | disposition home or self-care (01) | LOC: LAB 08:54 | PROVIDERS: ATTEND Internal Medicine Gastroenterology | DX: R10.9 Unspecified abdominal pain (principal) | CPT/HCPCS: 82270 ==

== ENCOUNTER → 2018-05-23 | Outpatient (CLI) | payer MEDICARE, OTHER | END | disposition home or self-care (01) | LOC: LAB 14:47 | PROVIDERS: ATTEND Urology | DX: N40.0 Benign prostatic hyperplasia without lower urinary tract symptoms (principal); N39.0 Urinary tract infection, site not specified; R97.20 Elevated prostate specific antigen [PSA] | CPT/HCPCS: 87086 ==

== ENCOUNTER → 2018-06-03 | Outpatient (CLI) | payer MEDICARE, OTHER ==
[2018-06-03 10:25] LABS: Red Cell Distribution Width 18.2 % (11.8-14.3)
[2018-06-03 10:29] LABS: Hematocrit 37.3 % (41.0-53.0); Hemoglobin 11.9 g/dL (13.5-17.5); Mean Corpuscular Hemoglobin 25.2 pg (28.0-32.0); Mean Corpuscular Hgb Conc. 31.9 g/dL (32.0-36.0); Mean Corpuscular Volume 78.9 fL (80.0-100.0); Platelet Count (auto) 158 10^3/uL (140-450); Red Blood Cells 4.72 10^6/uL (4.5-5.90); White Blood Cell 20.6 10^3/uL (4.4-10.8)
[2018-06-03 10:30] LABS: Band Neutrophils % (manual) 0; Basophils % (manual) 0 (0.0-2.0); Blast Cells 0; Eosinophils % (manual) 0 (0-7); Metamyelocytes % 0; Myelocytes % 0; Promyelocytes % 0; Reactive Lymphocytes 0
[2018-06-03 12:09] LABS: Lymphocytes % (manual) 87 (10.0-50.0); Monocytes % (manual) 3 (0-12)
[2018-06-03 17:09] LABS: Albumin 3.9 g/dL (3.4-5.0); Calcium 8.9 mg/dL (8.5-10.1); Potassium 4.1 mmol/L (3.5-5.1)
[2018-06-03 17:13] LABS: BUN/Creatinine Ratio 19.8; Bilirubin, Total 0.6 mg/dL (0.2-1.0); Total Protein 7.3 g/dL (6.4-8.2)
== END | disposition home or self-care (01) ==
LOC: LAB 09:18
PROVIDERS: ATTEND Internal Medicine
DX: D72.829 Elevated white blood cell count, unspecified (principal)
CPT/HCPCS: 36415; 80053; 83615; 85007; 85027

== ENCOUNTER → 2018-06-05 | Outpatient (CLI) | payer MEDICARE, OTHER ==
[2018-06-05 09:30] LABS: Hematocrit 36.4 % (41.0-53.0); Hemoglobin 11.4 g/dL (13.5-17.5); Mean Corpuscular Hemoglobin 24.8 pg (28.0-32.0); Red Blood Cells 4.58 10^6/uL (4.5-5.90); Red Cell Distribution Width 18.1 % (11.8-14.3)
[2018-06-05 09:31] LABS: Mean Corpuscular Hgb Conc. 31.2 g/dL (32.0-36.0); Mean Corpuscular Volume 79.5 fL (80.0-100.0); Platelet Count (auto) 162 10^3/uL (140-450); White Blood Cell 21.7 10^3/uL (4.4-10.8)
[2018-06-05 09:36] LABS: Band Neutrophils % (manual) 0; Basophils % (manual) 0 (0.0-2.0); Blast Cells 0; Eosinophils % (manual) 0 (0-7); Metamyelocytes % 0; Myelocytes % 0; Promyelocytes % 0; Reactive Lymphocytes 0
[2018-06-05 09:38] LABS: Urine Bacteria NONE SEEN /hpf (None Seen); Urine Blood Negative /uL (Negative); Urine Specific Gravity 1.014 (1.001-1.035); Urine WBC 1 /hpf (0 - 3)
[2018-06-05 09:49] LABS: Potassium 4.2 mmol/L (3.5-5.1)
[2018-06-05 09:57] LABS: Albumin 3.9 g/dL (3.4-5.0); BUN/Creatinine Ratio 21.1; Bilirubin, Total 0.7 mg/dL (0.2-1.0); Calcium 9.1 mg/dL (8.5-10.1); Total Protein 7.2 g/dL (6.4-8.2)
[2018-06-05 10:03] LABS: Lymphocytes % (manual) 79 (10.0-50.0); Monocytes % (manual) 3 (0-12)
[2018-06-05 10:09] LABS: Free T4 (Free Thyroxine) 1.01 ng/dL (0.89-1.76)
== END | disposition home or self-care (01) ==
LOC: LAB 08:53
PROVIDERS: ATTEND Internal Medicine
DX: E11.40 Type 2 diabetes mellitus with diabetic neuropathy, unspecified (principal); C91.90 Lymphoid leukemia, unspecified not having achieved remission; I11.0 Hypertensive heart disease with heart failure; I50.9 Heart failure, unspecified; D64.9 Anemia, unspecified; I25.10 Atherosclerotic heart disease of native coronary artery without angina pectoris; K21.9 Gastro-esophageal reflux disease without esophagitis
CPT/HCPCS: 36415; 80053; 80061; 81001; 82043; 82607; 83036; 83540; 84439; 84443; 85007; 85027; 85652

== ENCOUNTER → 2018-10-23 | Outpatient (CLI) | payer MEDICARE, OTHER ==
[2018-10-23 09:50] LABS: Hematocrit 42.7 % (41.0-53.0); Hemoglobin 14.3 g/dL (13.5-17.5); Mean Corpuscular Hemoglobin 30.3 pg (28.0-32.0); Mean Corpuscular Hgb Conc. 33.4 g/dL (32.0-36.0); Mean Corpuscular Volume 90.6 fL (80.0-100.0); Platelet Count (auto) 148 10^3/uL (140-450); Red Blood Cells 4.71 10^6/uL (4.5-5.90); Red Cell Distribution Width 15.8 % (11.8-14.3); White Blood Cell 24.2 10^3/uL (4.4-10.8)
[2018-10-23 09:54] LABS: Band Neutrophils % (manual) 0; Basophils % (manual) 0 (0.0-2.0); Blast Cells 0; Metamyelocytes % 0; Myelocytes % 0; Promyelocytes % 0
[2018-10-23 10:35] LABS: Albumin 3.8 g/dL (3.4-5.0); Bilirubin, Total 0.7 mg/dL (0.2-1.0); Calcium 8.9 mg/dL (8.5-10.1); Total Protein 7.3 g/dL (6.4-8.2)
[2018-10-23 10:56] LABS: % Iron Saturation 32.1 % (20-55)
[2018-10-23 10:58] LABS: Ferritin 18.9 ng/mL (10-322)
[2018-10-23 10:59] LABS: Folate (Folic Acid) > 24.00 ng/mL (5.38-24)
[2018-10-23 13:07] LABS: Eosinophils % (manual) 1 (0-7); Lymphocytes % (manual) 69 (10.0-50.0); Monocytes % (manual) 4 (0-12); Reactive Lymphocytes 12
== END | disposition home or self-care (01) ==
LOC: LAB 09:07
PROVIDERS: ATTEND Internal Medicine
DX: D72.829 Elevated white blood cell count, unspecified (principal); I11.0 Hypertensive heart disease with heart failure; I50.9 Heart failure, unspecified; E78.00 Pure hypercholesterolemia, unspecified
CPT/HCPCS: 36415; 80053; 82607; 82728; 82746; 83540; 83550; 83615; 85007; 85027

== ENCOUNTER 2018-11-21 16:47 | Emergency (ER) | payer MEDICARE, OTHER ==
[~2018-11-21] VITALS: Ht 154.9 cm; Wt 73.9 kg
[2018-11-21 17:17] VITALS: BP 154/61
[2018-11-21] MEDS ORDERED: BACLOFEN 10 MG TAB PO ONE (19:00)
[2018-11-21] MEDS ORDERED: HYDROcodone-ACET 10/325MG TAB PO ONE (19:00)
== END 2018-11-21 19:39 | disposition home or self-care (01) ==
LOC: ER 17:04
DX: M62.830 Muscle spasm of back (principal); M54.5 Low back pain; I25.810 Atherosclerosis of coronary artery bypass graft(s) without angina pectoris; K21.9 Gastro-esophageal reflux disease without esophagitis; E78.5 Hyperlipidemia, unspecified; I11.0 Hypertensive heart disease with heart failure; I50.9 Heart failure, unspecified; Z90.49 Acquired absence of other specified parts of digestive tract; Z79.82 Long term (current) use of aspirin; Z79.899 Other long term (current) drug therapy; Z95.1 Presence of aortocoronary bypass graft; Z95.0 Presence of cardiac pacemaker
CPT/HCPCS: 72100

== ENCOUNTER 2018-12-01 11:59 | Emergency (ER) | payer MEDICARE, OTHER ==
[~2018-12-01] VITALS: Ht 152.4 cm; Wt 73.9 kg
[2018-12-01 13:43] VITALS: BP 149/62
[2018-12-01] MEDS ORDERED: HYDROcodone-ACET 7.5/325MG TAB PO ONE (14:30)
[2018-12-01] MEDS ORDERED: BACITRACIN TOP OINT 1 UD PKG TOP ONE (15:00)
== END 2018-12-01 15:52 | disposition home or self-care (01) ==
LOC: ER 11:59
DX: S22.42XA Multiple fractures of ribs, left side, initial encounter for closed fracture (principal); I25.810 Atherosclerosis of coronary artery bypass graft(s) without angina pectoris; I11.0 Hypertensive heart disease with heart failure; I50.9 Heart failure, unspecified; K21.9 Gastro-esophageal reflux disease without esophagitis; E78.5 Hyperlipidemia, unspecified; Z79.82 Long term (current) use of aspirin; Z79.899 Other long term (current) drug therapy; Z90.49 Acquired absence of other specified parts of digestive tract; Z95.1 Presence of aortocoronary bypass graft; Z95.0 Presence of cardiac pacemaker; W01.190A Fall on same level from slipping, tripping and stumbling with subsequent striking against furniture, initial encounter; Y93.89 Activity, other specified; Y99.8 Other external cause status; Y92.89 Other specified places as the place of occurrence of the external cause
CPT/HCPCS: 71101

== ENCOUNTER 2018-12-03 13:10 | Emergency (ER) | payer MEDICARE, OTHER ==
[~2018-12-03] VITALS: Ht 167.6 cm; Wt 79.8 kg
[2018-12-03] MEDS ORDERED: HYDROcodone-ACET 10/325MG TAB PO ONE (17:30)
[2018-12-03 18:28] VITALS: BP 165/70
== END 2018-12-03 18:07 | disposition home or self-care (01) ==
LOC: ER 13:17
DX: R07.81 Pleurodynia (principal); I11.0 Hypertensive heart disease with heart failure; I50.9 Heart failure, unspecified; K21.9 Gastro-esophageal reflux disease without esophagitis; Z95.1 Presence of aortocoronary bypass graft; Z87.81 Personal history of (healed) traumatic fracture; Z95.0 Presence of cardiac pacemaker

== ENCOUNTER → 2019-01-13 | Outpatient (CLI) | payer MEDICARE, OTHER ==
[2019-01-13 11:34] LABS: Prostate Specific Antigen 4.24 ng/mL (0.0-4.0)
== END | disposition home or self-care (01) ==
LOC: LAB 09:53
PROVIDERS: ATTEND Internal Medicine
DX: N40.0 Benign prostatic hyperplasia without lower urinary tract symptoms (principal); E11.40 Type 2 diabetes mellitus with diabetic neuropathy, unspecified; I10 Essential (primary) hypertension; E78.00 Pure hypercholesterolemia, unspecified
CPT/HCPCS: 36415; 82607; 83036; 83735; 84153; 84154

== ENCOUNTER → 2019-03-07 | Outpatient (CLI) | payer MEDICARE, OTHER ==
[2019-03-07 11:00] LABS: Hemoglobin 14.3 g/dL (13.5-17.5); Mean Corpuscular Hgb Conc. 32.5 g/dL (32.0-36.0); Mean Corpuscular Volume 92.6 fL (80.0-100.0); Platelet Count (auto) 184 10^3/uL (140-450); Red Blood Cells 4.76 10^6/uL (4.5-5.90); Red Cell Distribution Width 14.2 % (11.8-14.3); White Blood Cell 23.9 10^3/uL (4.4-10.8)
[2019-03-07 11:15] LABS: Albumin 3.8 g/dL (3.4-5.0); Calcium 9.2 mg/dL (8.5-10.1); Potassium 4.3 mmol/L (3.5-5.1)
[2019-03-07 11:18] LABS: BUN/Creatinine Ratio 21.1; Bilirubin, Total 0.8 mg/dL (0.2-1.0); Total Protein 7.3 g/dL (6.4-8.2)
[2019-03-07 11:54] LABS: Basophils % (manual) 0 (0.0-2.0); Blast Cells 0; Metamyelocytes % 0; Myelocytes % 0; Promyelocytes % 0; Reactive Lymphocytes 0
[2019-03-07 11:59] LABS: Band Neutrophils % (manual) 1; Eosinophils % (manual) 1 (0-7); Lymphocytes % (manual) 83 (10.0-50.0); Monocytes % (manual) 1 (0-12)
== END | disposition home or self-care (01) ==
LOC: LAB 10:47
PROVIDERS: ATTEND Internal Medicine
DX: C91.90 Lymphoid leukemia, unspecified not having achieved remission (principal)
CPT/HCPCS: 36415; 80053; 83615; 85007; 85027

== ENCOUNTER → 2019-06-06 | Outpatient (CLI) | payer MEDICARE, OTHER ==
[2019-06-06 12:24] LABS: Urine WBC None Seen /hpf (0 - 3)
[2019-06-06 12:31] LABS: Hematocrit 45.2 % (41.0-53.0); Hemoglobin 14.5 g/dL (13.5-17.5); Mean Corpuscular Hemoglobin 29.1 pg (28.0-32.0); Mean Corpuscular Volume 90.8 fL (80.0-100.0); Platelet Count (auto) 168 10^3/uL (140-450); Red Blood Cells 4.98 10^6/uL (4.5-5.90); Red Cell Distribution Width 15.1 % (11.8-14.3); White Blood Cell 26.5 10^3/uL (4.4-10.8)
[2019-06-06 12:38] LABS: Urine Bacteria NONE SEEN /hpf (None Seen); Urine Blood Negative /uL (Negative); Urine Specific Gravity 1.005 (1.001-1.035)
[2019-06-06 12:51] LABS: Albumin 3.9 g/dL (3.4-5.0); Calcium 9.2 mg/dL (8.5-10.1); Potassium 4.1 mmol/L (3.5-5.1)
[2019-06-06 12:55] LABS: BUN/Creatinine Ratio 15.6; Total Protein 7.4 g/dL (6.4-8.2)
[2019-06-06 13:39] LABS: Band Neutrophils % (manual) 0; Basophils % (manual) 0 (0.0-2.0); Blast Cells 0; Eosinophils % (manual) 0 (0-7); Metamyelocytes % 0; Myelocytes % 0; Promyelocytes % 0; Reactive Lymphocytes 0
[2019-06-06 13:41] LABS: Lymphocytes % (manual) 81 (10.0-50.0); Monocytes % (manual) 4 (0-12)
== END | disposition home or self-care (01) ==
LOC: LAB 12:14
PROVIDERS: ATTEND Internal Medicine
DX: J20.9 Acute bronchitis, unspecified (principal); E11.40 Type 2 diabetes mellitus with diabetic neuropathy, unspecified
CPT/HCPCS: 36415; 80053; 80061; 81001; 82043; 83036; 83615; 84439; 84443; 85007; 85025; 85027; 85652

== ENCOUNTER 2019-10-10 09:02 | Day surgery (SDC) | payer MEDICARE, OTHER ==
[2019-10-06 15:03] LABS: Hematocrit 42.6 % (41.0-53.0); Hemoglobin 13.5 g/dL (13.5-17.5); Mean Corpuscular Hemoglobin 28.6 pg (28.0-32.0); Mean Corpuscular Hgb Conc. 31.8 g/dL (32.0-36.0); Mean Corpuscular Volume 89.8 fL (80.0-100.0); Platelet Count (auto) 160 10^3/uL (140-450); Red Blood Cells 4.74 10^6/uL (4.5-5.90); Red Cell Distribution Width 15.1 % (11.8-14.3); White Blood Cell 23.7 10^3/uL (4.4-10.8)
[2019-10-06 15:05] LABS: Band Neutrophils % (manual) 0; Basophils % (manual) 0 (0.0-2.0); Eosinophils % (manual) 0 (0-7); Metamyelocytes % 0; Myelocytes % 0; Promyelocytes % 0
[2019-10-06 15:09] LABS: INR 1.03 (0.9-1.15); Partial Thromboplastin Time 25.3 sec (23.0-31.2)
[2019-10-06 19:09] LABS: Blast Cells 1; Lymphocytes % (manual) 69 (10.0-50.0); Monocytes % (manual) 2 (0-12); Reactive Lymphocytes 6
[~2019-10-10] VITALS: Ht 154.9 cm; Wt 73.5 kg
[~2019-10-10 09:02] MED LIST changes: -ASPI-231 PO; +FLUMAZENIL 0.1 MG/ML INJ 10ML MDV IV ONE; +LISI-648 PO; -LISI10TA6 PO; +NALOXONE HCL 0.4 MG/ML VIAL ONE; -TAMS0.4C36 PO
[2019-10-10] MEDS ORDERED: SODIUM CHLORIDE LOCK 10 ML ONE (10:06)
[2019-10-10] MEDS: fentaNYL CITRATE 100 MCG/2 ML VL ONE ×2 (11:55→11:59)
[2019-10-10] MEDS: MIDAZOLAM HCL 5 MG/ML-1ML VIAL ONE ×4 (11:55→12:09)
[2019-10-10] MEDS: diphenhdrAMINE HCL 50 MG/1 ML VL ONE ×2 (12:16→12:19)
[2019-10-10 13:09] VITALS: BP 157/90
== END 2019-10-10 13:24 | disposition home or self-care (01) ==
LOC: SUR 09:02
PROVIDERS: ATTEND Internal Medicine Gastroenterology
DX: Z12.11 Encounter for screening for malignant neoplasm of colon (principal); D12.5 Benign neoplasm of sigmoid colon; D12.3 Benign neoplasm of transverse colon; Z95.1 Presence of aortocoronary bypass graft; I25.810 Atherosclerosis of coronary artery bypass graft(s) without angina pectoris; Z86.010 Personal history of colon polyps; Z96.89 Presence of other specified functional implants; Z90.49 Acquired absence of other specified parts of digestive tract; Z20.828 Contact with and (suspected) exposure to other viral communicable diseases
CPT/HCPCS: 36415; 45385; 85007; 85027; 85610; 85730; 88305; J1200; J2250; J3010; J7030; U0003; 99153; G0500

== ENCOUNTER → 2019-11-27 | Outpatient (CLI) | payer MEDICARE, OTHER ==
[~2019-11-27] MED LIST changes: -FLUMAZENIL 0.1 MG/ML INJ 10ML MDV IV ONE; +ISOS30TA4 PO; -NALOXONE HCL 0.4 MG/ML VIAL ONE
[2019-11-27 10:39] LABS: Hematocrit 42.1 % (41.0-53.0); Hemoglobin 13.9 g/dL (13.5-17.5); Mean Corpuscular Hemoglobin 29.4 pg (28.0-32.0); Platelet Count (auto) 165 10^3/uL (140-450); Red Blood Cells 4.73 10^6/uL (4.5-5.90); Red Cell Distribution Width 15.7 % (11.8-14.3)
[2019-11-27 10:57] LABS: INR 1.03 (0.9-1.15); Partial Thromboplastin Time 26.1 sec (23.0-31.2)
[2019-11-27 11:07] LABS: BUN/Creatinine Ratio 16.7; Calcium 9.1 mg/dL (8.5-10.1); Potassium 4.3 mmol/L (3.5-5.1)
[2019-11-27 11:29] LABS: White Blood Cell 33.4 10^3/uL (4.4-10.8)
[2019-11-27 11:30] LABS: Band Neutrophils % (manual) 0; Basophils % (manual) 0 (0.0-2.0); Blast Cells 0; Eosinophils % (manual) 0 (0-7); Metamyelocytes % 0; Myelocytes % 0; Promyelocytes % 0
[2019-11-27 11:34] LABS: Lymphocytes % (manual) 74 (10.0-50.0); Monocytes % (manual) 3 (0-12); Reactive Lymphocytes 13
== END | disposition home or self-care (01) ==
LOC: LAB 10:20
DX: C91.10 Chronic lymphocytic leukemia of B-cell type not having achieved remission (principal); I25.10 Atherosclerotic heart disease of native coronary artery without angina pectoris; I48.91 Unspecified atrial fibrillation; I10 Essential (primary) hypertension; E78.5 Hyperlipidemia, unspecified; Z95.1 Presence of aortocoronary bypass graft
CPT/HCPCS: 36415; 80048; 85007; 85027; 85610; 85730

== ENCOUNTER 2019-12-02 07:07 | Day surgery (SDC) | payer MEDICARE, OTHER ==
[~2019-12-02] VITALS: Ht 152.4 cm; Wt 76.2 kg
[~2019-12-02 07:07] MED LIST changes: -Isosorbide Mononitrate PO
[2019-12-02] MEDS ORDERED: LIDOCAINE VISCOUS 2% 15ML UD PO ONE (08:30)
[2019-12-02] MEDS ORDERED: diphenhdrAMINE HCL 50 MG/1 ML VL IV ONE (08:30)
[2019-12-02] MEDS ORDERED: MIDAZOLAM HCL 1MG/1ML-2 ML VIAL IV ONE (08:30)
[2019-12-02] MEDS ORDERED: fentaNYL CITRATE 100 MCG/2 ML VL IV ONE (08:30)
== END 2019-12-02 11:47 | disposition home or self-care (01) ==
LOC: CATH 07:07
PROVIDERS: ATTEND Internal Medicine
DX: I48.91 Unspecified atrial fibrillation (principal); E78.5 Hyperlipidemia, unspecified; I11.0 Hypertensive heart disease with heart failure; I25.810 Atherosclerosis of coronary artery bypass graft(s) without angina pectoris; Z87.891 Personal history of nicotine dependence; Z96.89 Presence of other specified functional implants; Z98.890 Other specified postprocedural states; Z79.899 Other long term (current) drug therapy; Z20.828 Contact with and (suspected) exposure to other viral communicable diseases; Z95.1 Presence of aortocoronary bypass graft; Z68.32 Body mass index [BMI] 32.0-32.9, adult
CPT/HCPCS: 93005; 93312; J1200; J2250; J3010; U0003; 99152

== ENCOUNTER 2020-04-26 10:26 | Inpatient (IN) | payer MEDICARE, OTHER ==
[~2020-04-26] VITALS: Ht 152.4 cm; Wt 81.8 kg
[2020-04-26] MEDS ORDERED: cefTRIAXone 1GM/50ML D5W 50 ML IV ONE (10:45)
[2020-04-26 11:02] LABS: Mean Corpuscular Hgb Conc. 32.7 g/dL (32.0-36.0)
[2020-04-26 11:05] LABS: Hematocrit 39.4 % (41.0-53.0); Hemoglobin 12.9 g/dL (13.5-17.5); Mean Corpuscular Hemoglobin 30.1 pg (28.0-32.0); Mean Corpuscular Volume 92.2 fL (80.0-100.0); Platelet Count (auto) 167 10^3/uL (140-450); Red Blood Cells 4.28 10^6/uL (4.5-5.90); Red Cell Distribution Width 15.4 % (11.8-14.3)
[2020-04-26 11:10] LABS: White Blood Cell 41.4 10^3/uL (4.4-10.8)
[2020-04-26 11:11] LABS: Band Neutrophils % (manual) 0; Basophils % (manual) 0 (0.0-2.0); Blast Cells 0; Metamyelocytes % 0; Monocytes % (manual) 0 (0-12); Myelocytes % 0; Promyelocytes % 0; Reactive Lymphocytes 0
[2020-04-26 11:25] LABS: Albumin 3.6 g/dL (3.4-5.0); Anion Gap 8 (5-15); Blood Urea Nitrogen 17 mg/dL (7-18); Calcium 8.4 mg/dL (8.5-10.1); Carbon Dioxide 26 mmol/L (21-32); Chloride 102 mmol/L (98-107); Glucose 119 mg/dL (74-106); Sodium 136 mmol/L (136-145)
[2020-04-26 11:28] LABS: Partial Thromboplastin Time 26.4 sec (23.0-31.2)
[2020-04-26 11:30] LABS: Alanine Aminotransferase 28 U/L (16-61); Alkaline Phosphatase 71 U/L (45-117); Aspartate Aminotransferase 25 U/L (15-37); BUN/Creatinine Ratio 16.2; Bilirubin, Total 0.8 mg/dL (0.2-1.0); GFR African American 87 mL/min; GFR Non-African American 72 mL/min
[2020-04-26 11:39] LABS: Eosinophils % (manual) 2 (0-7); Lymphocytes % (manual) 87 (10.0-50.0)
[2020-04-26 12:35] LABS: Urine Bacteria NONE SEEN /hpf (None Seen); Urine Blood Negative /uL (Negative); Urine Hyaline Cast FEW /lpf (0 - 2); Urine Specific Gravity 1.004 (1.001-1.035); Urine WBC 2 /hpf (0 - 3)
[2020-04-26] MEDS ORDERED: FUROSEMIDE 20 MG/2 ML VIAL IV ONE (13:30)
[2020-04-26] MEDS ORDERED: MORPHINE SULF INJ 2 MG/ML SYRINGE 1ML IV PRN ×2 (13:45)
[2020-04-26] MEDS ORDERED: hydrALAZINE HCL 20 MG/ML VL IV PRN (13:45)
[2020-04-26] MEDS ORDERED: NITROGLYCERIN 0.4 MG SL TAB SL PRN (13:45)
[2020-04-26] MEDS ORDERED: HYDROcodone-ACET 5/325MG TAB PO PRN (13:45)
[2020-04-26] MEDS ORDERED: ACETAMINOPHEN 500 MG TAB PO PRN (13:45)
[2020-04-26] MEDS ORDERED: ONDANSETRON HCL 4 MG/2 ML VIAL IV PRN (13:45)
[2020-04-26] MEDS ORDERED: FUROSEMIDE 40 MG TAB PO ONE (14:15)
[2020-04-26] MEDS ORDERED: PANTOPRAZOLE 40 MG TAB PO ONE ×2 (14:15→17:00)
[2020-04-26] MEDS ORDERED: METOPROLOL TARTRATE 50 MG TAB PO ONE (14:15)
[2020-04-26] MEDS ORDERED: GABAPENTIN 100 MG CAP PO ONE (14:15)
[2020-04-26] MEDS ORDERED: METOPROLOL SUCCINATE XL 50 MG TAB PO ONE (14:15)
[2020-04-26] MEDS ORDERED: LISINOPRIL 10 MG TAB PO ONE (14:15)
[2020-04-26] MEDS ORDERED: ISOSORBIDE MONONITRATE ER 60 MG TAB PO ONE (14:15)
[2020-04-26] MEDS ORDERED: FAMOTIDINE 20 MG TAB PO ONE (14:15)
[2020-04-26] MEDS ORDERED: SUCRALFATE 1 GM TAB PO ONE (14:15)
[2020-04-26] MEDS ORDERED: ASPirin 81 mg TAB PO ONE (17:00)
[2020-04-26] MEDS: METOPROLOL TARTRATE 50 MG TAB PO SCH (17:42)
[2020-04-26 20:40] VITALS: BP 104/62
[2020-04-26 22:00] VITALS: BP 104/62
[2020-04-26] MEDS: SUCRALFATE 1 GM TAB PO SCH (22:15)
[2020-04-26] MEDS: ATORVASTATIN 20 MG TAB PO SCH (22:16)
[2020-04-26] MEDS: GABAPENTIN 100 MG CAP PO SCH (22:16)
[2020-04-27] VITALS (8 sets, daily range): BP systolic 93–139; BP diastolic 52–88
[2020-04-27] MEDS ORDERED: DOCU-94 PO (00:08)
[2020-04-27] MEDS ORDERED: LACT10PA2 PO (00:08)
[2020-04-27 08:10] LABS: Hematocrit 38.2 % (41.0-53.0); Hemoglobin 12.6 g/dL (13.5-17.5); Mean Corpuscular Hemoglobin 30.6 pg (28.0-32.0); Mean Corpuscular Hgb Conc. 33.1 g/dL (32.0-36.0); Mean Corpuscular Volume 92.6 fL (80.0-100.0); Platelet Count (auto) 159 10^3/uL (140-450); Red Blood Cells 4.13 10^6/uL (4.5-5.90); Red Cell Distribution Width 15.6 % (11.8-14.3)
[2020-04-27 08:14] LABS: White Blood Cell 42.5 10^3/uL (4.4-10.8)
[2020-04-27 08:15] LABS: Band Neutrophils % (manual) 0; Basophils % (manual) 0 (0.0-2.0); Blast Cells 0; Eosinophils % (manual) 0 (0-7); Metamyelocytes % 0; Myelocytes % 0; Promyelocytes % 0; Reactive Lymphocytes 0
[2020-04-27 08:22] LABS: Calcium 8.3 mg/dL (8.5-10.1); Potassium 4.2 mmol/L (3.5-5.1)
[2020-04-27 08:23] LABS: INR 1.08 (0.9-1.15); Partial Thromboplastin Time 26.4 sec (23.0-31.2)
[2020-04-27 08:24] LABS: BUN/Creatinine Ratio 20.9
[2020-04-27] MEDS ORDERED: ADENOSINE 66 MG in GIVE UN-DILUTED 0 ML IV STA (08:26)
[2020-04-27 09:18] LABS: Lymphocytes % (manual) 79 (10.0-50.0); Monocytes % (manual) 2 (0-12)
[2020-04-27] MEDS ORDERED: FAMOTIDINE 20 MG TAB PO SCH (10:00)
[2020-04-27] MEDS ORDERED: PANTOPRAZOLE 40 MG TAB PO SCH (10:00)
[2020-04-27] MEDS ORDERED: LISINOPRIL 10 MG TAB PO SCH (10:00)
[2020-04-27] MEDS: ISOSORBIDE MONONITRATE ER 60 MG TAB PO SCH (10:23)
[2020-04-27] MEDS: PANTOPRAZOLE 40 MG TAB PO SCH (10:23)
[2020-04-27] MEDS: ASPirin 81 mg TAB PO SCH (10:24)
[2020-04-27] MEDS: FUROSEMIDE 40 MG TAB PO SCH (10:24)
[2020-04-27] MEDS: GABAPENTIN 100 MG CAP PO SCH ×2 (10:24→21:38)
[2020-04-27] MEDS: SUCRALFATE 1 GM TAB PO SCH ×2 (10:24→21:38)
[2020-04-27] MEDS: METOPROLOL TARTRATE 50 MG TAB PO SCH ×2 (10:25→18:22)
[2020-04-27] MEDS: ATORVASTATIN 20 MG TAB PO SCH (21:38)
[2020-04-28] VITALS (7 sets, daily range): BP systolic 112–174; BP diastolic 60–94
[2020-04-28 06:21] LABS: Potassium 4.5 mmol/L (3.5-5.1)
[2020-04-28] MEDS: METOPROLOL TARTRATE 50 MG TAB PO SCH (08:26)
[2020-04-28] MEDS ORDERED: LISINOPRIL 10 MG TAB PO SCH (10:00)
[2020-04-28] MEDS: ASPirin 81 mg TAB PO SCH (10:01)
[2020-04-28] MEDS: SUCRALFATE 1 GM TAB PO SCH (10:01)
[2020-04-28] MEDS: ISOSORBIDE MONONITRATE ER 60 MG TAB PO SCH (10:02)
[2020-04-28] MEDS: FUROSEMIDE 40 MG TAB PO SCH (10:02)
[2020-04-28] MEDS: PANTOPRAZOLE 40 MG TAB PO SCH (10:02)
[2020-04-28] MEDS: GABAPENTIN 100 MG CAP PO SCH (10:03)
== END 2020-04-28 18:30 | disposition home or self-care (01) | DRG 291 ==
LOC: ER 10:26 → TELE 10:27 → TELE-WESTW 20:40
PROVIDERS: ADMIT Nurse Practitioner Acute Care; ATTEND Internal Medicine
DX: I13.0 Hypertensive heart and chronic kidney disease with heart failure and stage 1 through stage 4 chronic kidney disease, or unspecified chronic kidney disease (principal); I50.43 Acute on chronic combined systolic (congestive) and diastolic (congestive) heart failure; C91.10 Chronic lymphocytic leukemia of B-cell type not having achieved remission; I25.810 Atherosclerosis of coronary artery bypass graft(s) without angina pectoris; I48.91 Unspecified atrial fibrillation; I42.8 Other cardiomyopathies; Z20.822 Contact with and (suspected) exposure to COVID-19; R13.10 Dysphagia, unspecified; K21.9 Gastro-esophageal reflux disease without esophagitis; Z68.35 Body mass index [BMI] 35.0-35.9, adult; E66.9 Obesity, unspecified; D63.8 Anemia in other chronic diseases classified elsewhere; E78.5 Hyperlipidemia, unspecified; Z90.49 Acquired absence of other specified parts of digestive tract; Z95.0 Presence of cardiac pacemaker; Z95.1 Presence of aortocoronary bypass graft; Z79.02 Long term (current) use of antithrombotics/antiplatelets; Z79.899 Other long term (current) drug therapy; Z82.49 Family history of ischemic heart disease and other diseases of the circulatory system; Z87.440 Personal history of urinary (tract) infections; N18.31 Chronic kidney disease, stage 3a
CPT/HCPCS: 36415; 71045; 78452; 80048; 80053; 81001; 83605; 83880; 84484; 85007; 85027; 85379; 85610; 85730; 86141; 87040; 87426; 93005; 93017; 93306; 96365; 96375; G0378; J0153; J0696

== ENCOUNTER → 2020-07-30 | Outpatient (CLI) | payer MEDICARE, OTHER ==
[~2020-07-30] MED LIST changes: +DOCU-94 PO; +ISOS1TAB28 PO; -ISOS30TA4 PO; +LACT10PA2 PO; -LISI-648 PO; +LISI-716 PO; -METO-169 PO; +METO-289 PO
[2020-07-30 08:29] LABS: Urine Bacteria FEW /hpf (None Seen); Urine Blood Negative /uL (Negative); Urine Hyaline Cast FEW /lpf (0 - 2); Urine Specific Gravity 1.011 (1.001-1.035); Urine WBC 3 /hpf (0 - 3)
[2020-07-30 08:42] LABS: Mean Corpuscular Volume 90.6 fL (80.0-100.0)
[2020-07-30 08:46] LABS: Hematocrit 38.1 % (41.0-53.0); Hemoglobin 12.2 g/dL (13.5-17.5); Mean Corpuscular Hemoglobin 28.9 pg (28.0-32.0); Mean Corpuscular Hgb Conc. 31.9 g/dL (32.0-36.0); Platelet Count (auto) 159 10^3/uL (140-450); Red Cell Distribution Width 16.9 % (11.8-14.3)
[2020-07-30 08:56] LABS: Band Neutrophils % (manual) 0; Basophils % (manual) 0 (0.0-2.0); Blast Cells 0; Metamyelocytes % 0; Myelocytes % 0; Promyelocytes % 0
[2020-07-30 08:57] LABS: Calcium 9.6 mg/dL (8.5-10.1); Potassium 3.8 mmol/L (3.5-5.1)
[2020-07-30 09:04] LABS: BUN/Creatinine Ratio 13.1; Bilirubin, Total 0.7 mg/dL (0.2-1.0); Total Protein 7.1 g/dL (6.4-8.2); Uric Acid 6.7 mg/dL (3.5-7.2)
[2020-07-30 09:05] LABS: Free T4 (Free Thyroxine) 0.18 ng/dL (0.89-1.76); Prostate Specific Antigen 3.58 ng/mL (0.0-4.0)
[2020-07-30 09:35] LABS: Eosinophils % (manual) 1 (0-7); Lymphocytes % (manual) 78 (10.0-50.0); Monocytes % (manual) 2 (0-12); Reactive Lymphocytes 8
== END | disposition home or self-care (01) ==
LOC: LAB 08:05
PROVIDERS: ATTEND Internal Medicine
DX: C91.10 Chronic lymphocytic leukemia of B-cell type not having achieved remission (principal); I10 Essential (primary) hypertension; N40.0 Benign prostatic hyperplasia without lower urinary tract symptoms; E11.43 Type 2 diabetes mellitus with diabetic autonomic (poly)neuropathy
CPT/HCPCS: 36415; 80053; 80061; 81001; 82043; 82607; 83036; 84153; 84439; 84443; 84550; 85007; 85027; 85652

== ENCOUNTER 2020-08-16 10:21 | Inpatient (IN) | payer MEDICARE, OTHER ==
[~2020-08-16] VITALS: Ht 165.1 cm; Wt 81.3 kg
[2020-08-16 11:26] LABS: Hematocrit 35.6 % (41.0-53.0); Mean Corpuscular Hemoglobin 30.2 pg (28.0-32.0); Mean Corpuscular Hgb Conc. 33.6 g/dL (32.0-36.0); Mean Corpuscular Volume 89.8 fL (80.0-100.0); Platelet Count (auto) 179 10^3/uL (140-450); Red Blood Cells 3.97 10^6/uL (4.5-5.90); Red Cell Distribution Width 16.8 % (11.8-14.3)
[2020-08-16 11:30] LABS: Albumin 3.8 g/dL (3.4-5.0); Anion Gap 6 (5-15); Blood Urea Nitrogen 16 mg/dL (7-18); Calcium 8.2 mg/dL (8.5-10.1); Carbon Dioxide 25 mmol/L (21-32); Chloride 107 mmol/L (98-107); Glucose 116 mg/dL (74-106); Potassium 4.4 mmol/L (3.5-5.1); Sodium 138 mmol/L (136-145)
[2020-08-16 11:36] LABS: White Blood Cell 33.6 10^3/uL (4.4-10.8)
[2020-08-16 11:37] LABS: Alanine Aminotransferase 17 U/L (16-61); Alkaline Phosphatase 75 U/L (45-117); Aspartate Aminotransferase 18 U/L (15-37); BUN/Creatinine Ratio 13.4; Bilirubin, Total 0.7 mg/dL (0.2-1.0); GFR African American 75 mL/min; GFR Non-African American 62 mL/min; Total Protein 6.9 g/dL (6.4-8.2)
[2020-08-16 11:41] LABS: Band Neutrophils % (manual) 0; Basophils % (manual) 0 (0.0-2.0); Blast Cells 0; Metamyelocytes % 0; Myelocytes % 0; Promyelocytes % 0; Reactive Lymphocytes 0
[2020-08-16 12:04] LABS: Eosinophils % (manual) 1 (0-7); Lymphocytes % (manual) 85 (10.0-50.0); Monocytes % (manual) 2 (0-12)
[2020-08-16] MEDS ORDERED: HYDROcodone-ACET 5/325MG TAB PO PRN (15:15)
[2020-08-16] MEDS ORDERED: ACETAMINOPHEN 500 MG TAB PO PRN (15:15)
[2020-08-16] MEDS ORDERED: MORPHINE SULF INJ 2 MG/ML SYRINGE 1ML IV PRN ×2 (15:15)
[2020-08-16] MEDS ORDERED: ONDANSETRON HCL 4 MG/2 ML VIAL IV PRN (15:15)
[2020-08-16] MEDS ORDERED: NITROGLYCERIN 0.4 MG SL TAB SL PRN (15:15)
[2020-08-16] MEDS: FUROSEMIDE 20 MG/2 ML VIAL IV SCH ×2 (18:00→19:28)
[2020-08-16] MEDS: METOPROLOL SUCCINATE XL 50 MG TAB PO SCH ×2 (18:00→19:28)
[2020-08-16 18:24] VITALS: BP 156/78
[2020-08-16] MEDS ORDERED: LEV50T PO (19:17)
[2020-08-16] MEDS: SUCRALFATE 1 GM TAB PO SCH (21:20)
[2020-08-16] MEDS: GABAPENTIN 100 MG CAP PO SCH (21:20)
[2020-08-16] MEDS: ATORVASTATIN 20 MG TAB PO SCH (21:20)
[2020-08-16 22:00] VITALS: BP 134/80
[2020-08-17 04:00] VITALS: BP 127/75
[2020-08-17] MEDS: FUROSEMIDE 20 MG/2 ML VIAL IV SCH ×2 (05:53→17:46)
[2020-08-17 09:06] VITALS: BP 120/70
[2020-08-17] MEDS: GABAPENTIN 100 MG CAP PO SCH ×2 (09:18→20:57)
[2020-08-17] MEDS: CILOSTAZOL 100 MG TAB PO SCH (09:18)
[2020-08-17] MEDS: SUCRALFATE 1 GM TAB PO SCH ×2 (09:18→20:56)
[2020-08-17] MEDS: PANTOPRAZOLE 40 MG TAB PO SCH (09:20)
[2020-08-17] MEDS: METOPROLOL SUCCINATE XL 50 MG TAB PO SCH ×2 (09:28→17:46)
[2020-08-17] MEDS ORDERED: LISINOPRIL 10 MG TAB PO SCH (10:00)
[2020-08-17] MEDS ORDERED: FAMOTIDINE 20 MG TAB PO SCH (10:00)
[2020-08-17] MEDS ORDERED: LOSA-39 PO (11:28)
[2020-08-17 12:31] VITALS: BP 121/69
[2020-08-17] MEDS ORDERED: LIDOCAINE VISCOUS 2% 15ML UD MT PRN (16:00)
[2020-08-17 16:39] VITALS: BP 115/72
[2020-08-17] MEDS: ISOSORBIDE MONONITRATE ER 60 MG TAB PO SCH (17:45)
[2020-08-17] MEDS: ATORVASTATIN 20 MG TAB PO SCH (20:56)
[2020-08-17 22:00] VITALS: BP 100/75
[2020-08-18 05:00] VITALS: BP 125/70
[2020-08-18] MEDS: FUROSEMIDE 20 MG/2 ML VIAL IV SCH (05:18)
[2020-08-18 06:15] LABS: Potassium 3.9 mmol/L (3.5-5.1)
[2020-08-18 06:20] LABS: BUN/Creatinine Ratio 21.1; Calcium 8.7 mg/dL (8.5-10.1)
[2020-08-18] MEDS: GABAPENTIN 100 MG CAP PO SCH ×2 (08:17→21:47)
[2020-08-18] MEDS: CILOSTAZOL 100 MG TAB PO SCH (08:18)
[2020-08-18] MEDS: ISOSORBIDE MONONITRATE ER 60 MG TAB PO SCH (08:18)
[2020-08-18] MEDS: LISINOPRIL 20 MG TAB PO SCH (08:18)
[2020-08-18] MEDS: SUCRALFATE 1 GM TAB PO SCH ×2 (08:19→21:47)
[2020-08-18] MEDS: METOPROLOL SUCCINATE XL 50 MG TAB PO SCH ×2 (08:19→17:49)
[2020-08-18] MEDS: PANTOPRAZOLE 40 MG TAB PO SCH (08:19)
[2020-08-18 09:00] VITALS: BP 116/74
[2020-08-18 13:00] VITALS: BP 87/51
[2020-08-18 17:00] VITALS: BP 94/56
[2020-08-18] MEDS: ATORVASTATIN 20 MG TAB PO SCH (21:48)
[2020-08-18 22:00] VITALS: BP 105/60
[2020-08-19 05:00] VITALS: BP 95/54
[2020-08-19 05:21] LABS: Mean Corpuscular Hemoglobin 30.3 pg (28.0-32.0)
[2020-08-19 05:24] LABS: Hematocrit 35.6 % (41.0-53.0); Hemoglobin 12.1 g/dL (13.5-17.5); Mean Corpuscular Hgb Conc. 33.9 g/dL (32.0-36.0); Mean Corpuscular Volume 89.3 fL (80.0-100.0); Platelet Count (auto) 175 10^3/uL (140-450); Red Blood Cells 3.98 10^6/uL (4.5-5.90)
[2020-08-19 05:37] LABS: White Blood Cell 36.7 10^3/uL (4.4-10.8)
[2020-08-19 05:38] LABS: Basophils % (manual) 0 (0.0-2.0); Blast Cells 0; Eosinophils % (manual) 0 (0-7); Metamyelocytes % 0; Monocytes % (manual) 0 (0-12); Myelocytes % 0; Promyelocytes % 0; Reactive Lymphocytes 0
[2020-08-19 05:42] LABS: BUN/Creatinine Ratio 24.8; Calcium 8.4 mg/dL (8.5-10.1)
[2020-08-19 06:38] LABS: Band Neutrophils % (manual) 2; Lymphocytes % (manual) 82 (10.0-50.0)
[2020-08-19 07:45] VITALS: BP 114/67
[2020-08-19 09:00] VITALS: BP 114/67
[2020-08-19] MEDS: SUCRALFATE 1 GM TAB PO SCH (09:05)
[2020-08-19] MEDS: PANTOPRAZOLE 40 MG TAB PO SCH (09:06)
[2020-08-19] MEDS: GABAPENTIN 100 MG CAP PO SCH (09:06)
[2020-08-19] MEDS: CILOSTAZOL 100 MG TAB PO SCH (09:06)
[2020-08-19] MEDS: METOPROLOL SUCCINATE XL 50 MG TAB PO SCH (09:06)
[2020-08-19] MEDS: LISINOPRIL 20 MG TAB PO SCH (09:07)
[2020-08-19] MEDS: ISOSORBIDE MONONITRATE ER 60 MG TAB PO SCH (09:07)
[2020-08-19 13:00] VITALS: BP 113/69
== END 2020-08-19 15:30 | disposition home or self-care (01) | DRG 292 ==
LOC: ER 10:21 → TELE-WESTW 15:14
PROVIDERS: ADMIT Nurse Practitioner Acute Care; ATTEND Internal Medicine
DX: I11.0 Hypertensive heart disease with heart failure (principal); C91.10 Chronic lymphocytic leukemia of B-cell type not having achieved remission; I50.43 Acute on chronic combined systolic (congestive) and diastolic (congestive) heart failure; I25.10 Atherosclerotic heart disease of native coronary artery without angina pectoris; E66.9 Obesity, unspecified; E78.5 Hyperlipidemia, unspecified; Z68.29 Body mass index [BMI] 29.0-29.9, adult; D63.8 Anemia in other chronic diseases classified elsewhere; Z79.02 Long term (current) use of antithrombotics/antiplatelets; Z79.899 Other long term (current) drug therapy; Z82.49 Family history of ischemic heart disease and other diseases of the circulatory system; Z95.0 Presence of cardiac pacemaker; Z95.1 Presence of aortocoronary bypass graft; K21.9 Gastro-esophageal reflux disease without esophagitis; Z20.822 Contact with and (suspected) exposure to COVID-19; J02.9 Acute pharyngitis, unspecified
CPT/HCPCS: 36415; 71045; 80048; 80053; 83880; 84484; 85007; 85025; 85027; 85049; 85379; 87070; 87426; 87880; 93005; G0378; J2405

== ENCOUNTER → 2020-08-24 | Outpatient (CLI) | payer MEDICARE, OTHER ==
[~2020-08-24] MED LIST changes: +LEV50T PO; -LISI-716 PO; -POTA10TA51 PO
== END | disposition home or self-care (01) ==
LOC: LAB 07:20
PROVIDERS: ATTEND Internal Medicine
DX: E03.9 Hypothyroidism, unspecified (principal)
CPT/HCPCS: 36415; 84439; 84443

== ENCOUNTER → 2020-09-09 | Outpatient (CLI) | payer MEDICARE, OTHER ==
[2020-09-09 11:34] LABS: Calcium 8.9 mg/dL (8.5-10.1); Magnesium 2.4 mg/dL (1.6-2.6); Potassium 3.6 mmol/L (3.5-5.1)
[2020-09-09 11:37] LABS: BUN/Creatinine Ratio 12.2
== END | disposition home or self-care (01) ==
LOC: LAB 10:46
PROVIDERS: ATTEND Internal Medicine
DX: I50.9 Heart failure, unspecified (principal); E03.9 Hypothyroidism, unspecified; Z79.899 Other long term (current) drug therapy
CPT/HCPCS: 36415; 80048; 83735; 84439; 84443

== ENCOUNTER → 2020-11-10 | Outpatient (CLI) | payer MEDICARE ==
[2020-11-10 09:49] LABS: Hematocrit 35.5 % (41.0-53.0); Hemoglobin 11.7 g/dL (13.5-17.5); Mean Corpuscular Hemoglobin 29.4 pg (28.0-32.0); Mean Corpuscular Volume 88.9 fL (80.0-100.0); Red Blood Cells 3.99 10^6/uL (4.5-5.90); Red Cell Distribution Width 15.9 % (11.8-14.3); White Blood Cell 29.9 10^3/uL (4.4-10.8)
[2020-11-10 10:03] LABS: Band Neutrophils % (manual) 0; Basophils % (manual) 0 (0.0-2.0); Blast Cells 0; Metamyelocytes % 0; Myelocytes % 0; Promyelocytes % 0
[2020-11-10 10:19] LABS: Albumin 3.6 g/dL (3.4-5.0)
[2020-11-10 10:24] LABS: BUN/Creatinine Ratio 15.7; Bilirubin, Total 0.8 mg/dL (0.2-1.0); Total Protein 6.7 g/dL (6.4-8.2); Uric Acid 5.6 mg/dL (3.5-7.2)
[2020-11-10 10:30] LABS: Thyroid Stimulating Hormone 1.63 uIU/mL (0.358-3.74)
[2020-11-10 12:14] LABS: Eosinophils % (manual) 1 (0-7); Lymphocytes % (manual) 71 (10.0-50.0); Monocytes % (manual) 2 (0-12); Reactive Lymphocytes 10
[2020-11-11 07:06] LABS: Immunoglobulin G, Serum 745 mg/dL (603-1613)
[2020-11-11 13:04] LABS: Hepatitis B Surface Antigen Negative (Negative)
[2020-11-11 14:21] LABS: Hepatitis B Surface Antibody Negative
[2020-11-11 15:18] LABS: Hepatitis C Antibody Negative (Negative)
== END | disposition home or self-care (01) ==
LOC: LAB 09:15
PROVIDERS: ATTEND Internal Medicine
DX: C91.10 Chronic lymphocytic leukemia of B-cell type not having achieved remission (principal); I50.22 Chronic systolic (congestive) heart failure; E03.9 Hypothyroidism, unspecified
CPT/HCPCS: 36415; 80053; 82784; 83615; 83883; 84439; 84443; 84550; 85007; 85027; 86334; 86706; 86803; 87340

== ENCOUNTER 2020-12-13 11:33 | Emergency (ER) | payer MEDICARE, OTHER ==
[~2020-12-13] VITALS: Ht 152.4 cm; Wt 81.6 kg
[2020-12-13] MEDS ORDERED: PANTOPRAZOLE 40 MG TAB PO ONE (12:45)
[2020-12-13 16:48] LABS: Hemoglobin 11.9 g/dL (13.5-17.5)
[2020-12-13 16:50] LABS: Hematocrit 36.8 % (41.0-53.0); Mean Corpuscular Hemoglobin 27.7 pg (28.0-32.0); Mean Corpuscular Hgb Conc. 32.4 g/dL (32.0-36.0); Mean Corpuscular Volume 85.4 fL (80.0-100.0); Red Blood Cells 4.31 10^6/uL (4.5-5.90); Red Cell Distribution Width 14.9 % (11.8-14.3)
[2020-12-13 17:02] LABS: Calcium 8.7 mg/dL (8.5-10.1)
[2020-12-13 17:06] LABS: Albumin 3.7 g/dL (3.4-5.0)
[2020-12-13 17:10] LABS: Total Protein 6.8 g/dL (6.4-8.2)
[2020-12-13 17:47] LABS: White Blood Cell 31.7 10^3/uL (4.4-10.8)
[2020-12-13 17:49] LABS: Basophils % (manual) 0 (0.0-2.0); Blast Cells 0; Eosinophils % (manual) 0 (0-7); Myelocytes % 0; Promyelocytes % 0
[2020-12-13] MEDS ORDERED: SODIUM CHLORIDE 0.9% 1,000 ML IV ONE (18:00)
[2020-12-13 18:37] LABS: Band Neutrophils % (manual) 2; Metamyelocytes % 1
[2020-12-13 18:38] LABS: Lymphocytes % (manual) 76 (10.0-50.0); Monocytes % (manual) 2 (0-12); Reactive Lymphocytes 5
[2020-12-13 19:24] LABS: INR 1.1 (0.9-1.15); Partial Thromboplastin Time 27.7 sec (23.6-33.0)
[2020-12-13] MEDS ORDERED: IOHEXOL 350 MG/ML 100ML IJ ONE (19:35)
[2020-12-13 22:50] VITALS: BP 172/85
== END 2020-12-14 00:13 | disposition home or self-care (01) ==
LOC: ER 11:33
DX: K29.70 Gastritis, unspecified, without bleeding (principal); D72.829 Elevated white blood cell count, unspecified; K21.9 Gastro-esophageal reflux disease without esophagitis; I11.0 Hypertensive heart disease with heart failure; I50.9 Heart failure, unspecified; E78.5 Hyperlipidemia, unspecified; M54.2 Cervicalgia
CPT/HCPCS: 36415; 70491; 71045; 71260; 74177; 80053; 83605; 83735; 84484; 85007; 85027; 85610; 85730; 87040; 93005; 96360; 99285; J7030; Q9967

== ENCOUNTER 2020-12-20 17:18 | Emergency (ER) | payer MEDICARE, OTHER ==
[~2020-12-20] VITALS: Ht 154.9 cm; Wt 81.6 kg
[2020-12-20] MEDS ORDERED: POTASSIUM CHL 20 Meq TABLET PO ONE (22:45)
[2020-12-20] MEDS ORDERED: FUROSEMIDE 20 MG TAB PO ONE (22:45)
[2020-12-20] MEDS ORDERED: PANTOPRAZOLE 40 MG TAB PO ONE (22:45)
[2020-12-20 23:28] LABS: Hematocrit 34.5 % (41.0-53.0); Mean Corpuscular Hemoglobin 27.1 pg (28.0-32.0); Mean Corpuscular Volume 84.8 fL (80.0-100.0); Red Blood Cells 4.07 10^6/uL (4.5-5.90); Red Cell Distribution Width 15.2 % (11.8-14.3)
[2020-12-20 23:41] LABS: INR 1.1 (0.9-1.15)
[2020-12-20 23:50] LABS: Band Neutrophils % (manual) 0; Basophils % (manual) 0 (0.0-2.0); Blast Cells 0; Eosinophils % (manual) 0 (0-7); Metamyelocytes % 0; Myelocytes % 0; Promyelocytes % 0; Reactive Lymphocytes 0
[2020-12-21] LABS: Potassium 3.9 mmol/L (3.5-5.1)
[2020-12-21 00:05] LABS: Albumin 3.5 g/dL (3.4-5.0); BUN/Creatinine Ratio 8.2; Calcium 8.6 mg/dL (8.5-10.1)
[2020-12-21 00:10] LABS: Bilirubin, Total 0.9 mg/dL (0.2-1.0); Total Protein 6.7 g/dL (6.4-8.2)
[2020-12-21 00:40] LABS: Lymphocytes % (manual) 83 (10.0-50.0); Monocytes % (manual) 1 (0-12)
[2020-12-21 02:22] VITALS: BP 167/89
== END 2020-12-21 02:41 | disposition home or self-care (01) ==
LOC: ER 17:18
DX: K21.9 Gastro-esophageal reflux disease without esophagitis (principal); I11.0 Hypertensive heart disease with heart failure; I50.9 Heart failure, unspecified; R60.0 Localized edema; D72.829 Elevated white blood cell count, unspecified; E66.9 Obesity, unspecified; Z68.34 Body mass index [BMI] 34.0-34.9, adult
CPT/HCPCS: 36415; 71045; 80053; 82550; 83880; 84484; 85007; 85027; 85610; 93005

== ENCOUNTER → 2021-01-14 | Outpatient (CLI) | payer MEDICARE, OTHER ==
[2021-01-14 13:49] LABS: Mean Corpuscular Hemoglobin 26.2 pg (28.0-32.0)
[2021-01-14 13:50] LABS: Hematocrit 33.6 % (41.0-53.0); Hemoglobin 10.6 g/dL (13.5-17.5); Mean Corpuscular Hgb Conc. 31.4 g/dL (32.0-36.0); Mean Corpuscular Volume 83.4 fL (80.0-100.0); Red Blood Cells 4.03 10^6/uL (4.5-5.90); Red Cell Distribution Width 15.4 % (11.8-14.3)
[2021-01-14 13:56] LABS: Basophils % (manual) 0 (0.0-2.0); Blast Cells 0; Eosinophils % (manual) 0 (0-7); Metamyelocytes % 0; Myelocytes % 0; Promyelocytes % 0; Reactive Lymphocytes 0
[2021-01-14 14:18] LABS: Potassium 3.7 mmol/L (3.5-5.1)
[2021-01-14 14:22] LABS: Band Neutrophils % (manual) 1; Lymphocytes % (manual) 78 (10.0-50.0); Monocytes % (manual) 3 (0-12)
[2021-01-14 14:31] LABS: Albumin 3.5 g/dL (3.4-5.0); BUN/Creatinine Ratio 12.5; Bilirubin, Total 0.7 mg/dL (0.2-1.0); Calcium 8.5 mg/dL (8.5-10.1); Total Protein 6.4 g/dL (6.4-8.2)
[2021-01-15 08:06] LABS: Immunoglobulin G, Serum 677 mg/dL (603-1613)
== END | disposition home or self-care (01) ==
LOC: LAB 13:15
PROVIDERS: ATTEND Internal Medicine
DX: C91.10 Chronic lymphocytic leukemia of B-cell type not having achieved remission (principal)
CPT/HCPCS: 36415; 80053; 82232; 82784; 83615; 83883; 85007; 85027; 85652; 86334

== ENCOUNTER → 2021-04-04 | Outpatient (CLI) | payer MEDICARE, OTHER | END | disposition home or self-care (01) | LOC: LAB 08:42 | PROVIDERS: ATTEND Internal Medicine | DX: E11.9 Type 2 diabetes mellitus without complications (principal); E03.9 Hypothyroidism, unspecified | CPT/HCPCS: 36415; 83036; 84439; 84443 ==

== ENCOUNTER → 2021-04-19 | Outpatient (CLI) | payer MEDICARE, OTHER ==
[2021-04-19 07:44] LABS: Hematocrit 33.9 % (41.0-53.0); Hemoglobin 10.8 g/dL (13.5-17.5); Mean Corpuscular Hemoglobin 25.6 pg (28.0-32.0); Mean Corpuscular Hgb Conc. 31.7 g/dL (32.0-36.0); Mean Corpuscular Volume 80.7 fL (80.0-100.0); Red Cell Distribution Width 18.2 % (11.8-14.3); White Blood Cell 25.8 10^3/uL (4.4-10.8)
[2021-04-19 07:53] LABS: Band Neutrophils % (manual) 0; Eosinophils % (manual) 0 (0-7)
[2021-04-19 07:54] LABS: Basophils % (manual) 0 (0.0-2.0); Blast Cells 0; Metamyelocytes % 0; Myelocytes % 0; Promyelocytes % 0; Reactive Lymphocytes 0
[2021-04-19 08:02] LABS: Albumin 3.5 g/dL (3.4-5.0); Calcium 8.6 mg/dL (8.5-10.1); Potassium 4.5 mmol/L (3.5-5.1)
[2021-04-19 08:06] LABS: BUN/Creatinine Ratio 15.4; Bilirubin, Total 0.7 mg/dL (0.2-1.0); Total Protein 6.6 g/dL (6.4-8.2)
[2021-04-19 08:23] LABS: Lymphocytes % (manual) 86 (10.0-50.0); Monocytes % (manual) 4 (0-12)
[2021-04-20 08:06] LABS: Immunoglobulin G, Serum 716 mg/dL (603-1613)
[2021-04-21 12:11] LABS: Protein, Urine 7.6 mg/dL (0.0-11.9)
== END | disposition home or self-care (01) ==
LOC: LAB 06:55
PROVIDERS: ATTEND Internal Medicine
DX: C91.10 Chronic lymphocytic leukemia of B-cell type not having achieved remission (principal)
CPT/HCPCS: 36415; 80053; 82784; 83615; 83883; 84155; 84156; 84165; 84166; 85007; 85027; 86334; 86335

== ENCOUNTER 2021-09-08 09:19 | Emergency (ER) | payer MEDICARE, OTHER ==
[~2021-09-08] VITALS: Ht 154.9 cm; Wt 80.0 kg
[2021-09-08] MEDS ORDERED: ALUM & MAG HYDROX-SIMETH LIQ(MAALOX) 30 ML PO ONE (09:45)
[2021-09-08] MEDS ORDERED: DONNATAL 5ml ORAL Elix (BELLADONNA ALK-PHENOBARB) PO ONE (09:45)
[2021-09-08] MEDS ORDERED: LIDOCAINE VISCOUS 2% 15ML UD PO ONE (09:45)
[2021-09-08 10:03] LABS: Hemoglobin 11.4 g/dL (13.5-17.5); Monocytes # (auto) 0.6 10 ^3/uL (0-1.3); White Blood Cell 25.6 10^3/uL (4.4-10.8)
[2021-09-08 10:06] LABS: Basophils # (auto) 0.1 10 ^3/uL (0-0.2); Basophils % (auto) 0.2 % (0.0-2.0); Eosinophils # (auto) 0.2 10 ^3/uL (0-0.8); Eosinophils % (auto) 0.7 % (0.0-7.0); Hematocrit 36.3 % (41.0-53.0); Lymphocytes # (auto) 21.4 10 ^3/uL (0.4-5.4); Mean Corpuscular Hgb Conc. 31.4 g/dL (32.0-36.0); Mean Corpuscular Volume 82.8 fL (80.0-100.0); Monocytes % (auto) 2.2 % (0.0-12.0); Neutrophils # (auto) 3.4 10 ^3/uL (1.6-8.6); Neutrophils % (auto) 13.4 % (37.0-80.0); Nucleated Red Blood Cells % 0.5 %; Red Blood Cells 4.39 10^6/uL (4.5-5.90); Red Cell Distribution Width 17.1 % (11.8-14.3)
[2021-09-08 10:08] LABS: Lymphocytes % (auto) 83.5 % (10.0-50.0)
[2021-09-08 10:37] LABS: Albumin 3.5 g/dL (3.4-5.0); Calcium 8.9 mg/dL (8.5-10.1); Potassium 4.1 mmol/L (3.5-5.1)
[2021-09-08 10:43] LABS: BUN/Creatinine Ratio 10.9; Bilirubin, Total 0.8 mg/dL (0.2-1.0); Total Protein 6.4 g/dL (6.4-8.2)
[2021-09-08] MEDS ORDERED: CEPH-509 PO (12:01)
[2021-09-08 13:20] VITALS: BP 130/72
== END 2021-09-08 13:38 | disposition home or self-care (01) ==
LOC: ER 09:19
DX: I11.0 Hypertensive heart disease with heart failure (principal); I50.9 Heart failure, unspecified; I25.10 Atherosclerotic heart disease of native coronary artery without angina pectoris; E78.5 Hyperlipidemia, unspecified; K21.9 Gastro-esophageal reflux disease without esophagitis; Z90.49 Acquired absence of other specified parts of digestive tract; Z95.1 Presence of aortocoronary bypass graft; Z95.0 Presence of cardiac pacemaker; Z79.899 Other long term (current) drug therapy
CPT/HCPCS: 36415; 80053; 84484; 85025; 93005

== ENCOUNTER → 2021-09-12 | Outpatient (CLI) | payer MEDICARE, OTHER ==
[~2021-09-12] MED LIST changes: +CEPH-509 PO
[2021-09-12 09:22] LABS: Hemoglobin 11.3 g/dL (13.5-17.5)
[2021-09-12 09:23] LABS: Hematocrit 36.2 % (41.0-53.0); Mean Corpuscular Hemoglobin 25.9 pg (28.0-32.0); Mean Corpuscular Hgb Conc. 31.3 g/dL (32.0-36.0); Mean Corpuscular Volume 82.9 fL (80.0-100.0); Red Blood Cells 4.37 10^6/uL (4.5-5.90); Red Cell Distribution Width 17.3 % (11.8-14.3)
[2021-09-12 09:32] LABS: Basophils % (manual) 0 (0.0-2.0); Blast Cells 0; Eosinophils % (manual) 0 (0-7); Metamyelocytes % 0; Monocytes % (manual) 0 (0-12); Myelocytes % 0; Promyelocytes % 0; White Blood Cell 34.1 10^3/uL (4.4-10.8)
[2021-09-12 09:51] LABS: Albumin 3.7 g/dL (3.4-5.0); Calcium 8.6 mg/dL (8.5-10.1); Potassium 3.8 mmol/L (3.5-5.1)
[2021-09-12 09:54] LABS: BUN/Creatinine Ratio 11.1; Total Protein 6.6 g/dL (6.4-8.2)
[2021-09-12 13:03] LABS: Band Neutrophils % (manual) 1; Lymphocytes % (manual) 44 (10.0-50.0); Reactive Lymphocytes 7
[2021-09-13 08:06] LABS: Immunoglobulin G, Serum 699 mg/dL (603-1613)
== END | disposition home or self-care (01) ==
LOC: LAB 08:58
PROVIDERS: ATTEND Internal Medicine
DX: C91.10 Chronic lymphocytic leukemia of B-cell type not having achieved remission (principal)
CPT/HCPCS: 36415; 80053; 82784; 83615; 85007; 85027; 86334

== ENCOUNTER 2021-09-18 14:11 | Emergency (ER) | payer MEDICARE, OTHER ==
[~2021-09-18] VITALS: Ht 154.9 cm; Wt 67.2 kg
[2021-09-18 17:16] VITALS: BP 144/72
[2021-09-18] MEDS ORDERED: FAMO20TA10 PO (17:58)
== END 2021-09-18 18:13 | disposition home or self-care (01) ==
LOC: ER 14:11
DX: K29.70 Gastritis, unspecified, without bleeding (principal); I11.0 Hypertensive heart disease with heart failure; I50.9 Heart failure, unspecified; I25.10 Atherosclerotic heart disease of native coronary artery without angina pectoris; E78.5 Hyperlipidemia, unspecified; K21.9 Gastro-esophageal reflux disease without esophagitis; Z90.49 Acquired absence of other specified parts of digestive tract; Z95.0 Presence of cardiac pacemaker; Z95.1 Presence of aortocoronary bypass graft; Z79.899 Other long term (current) drug therapy

== ENCOUNTER 2021-09-23 12:05 | Inpatient (IN) | payer MEDICARE, OTHER ==
[~2021-09-23] VITALS: Ht 175.3 cm; Wt 68.4 kg
[~2021-09-23 12:05] MED LIST changes: +FAMO20TA10 PO
[2021-09-23 13:34] LABS: Hematocrit 35.4 % (41.0-53.0); Hemoglobin 10.8 g/dL (13.5-17.5); Mean Corpuscular Hemoglobin 25.5 pg (28.0-32.0); Mean Corpuscular Hgb Conc. 30.6 g/dL (32.0-36.0); Mean Corpuscular Volume 83.4 fL (80.0-100.0); Red Blood Cells 4.24 10^6/uL (4.5-5.90); Red Cell Distribution Width 17.3 % (11.8-14.3)
[2021-09-23 13:39] LABS: White Blood Cell 30.2 10^3/uL (4.4-10.8)
[2021-09-23 13:41] LABS: Band Neutrophils % (manual) 0; Basophils % (manual) 0 (0.0-2.0); Blast Cells 0; Eosinophils % (manual) 0 (0-7); Metamyelocytes % 0; Myelocytes % 0; Promyelocytes % 0; Reactive Lymphocytes 0
[2021-09-23 13:51] LABS: Albumin 3.6 g/dL (3.4-5.0); Calcium 8.8 mg/dL (8.5-10.1); Magnesium 2.4 mg/dL (1.6-2.6); Potassium 4.1 mmol/L (3.5-5.1)
[2021-09-23 13:54] LABS: BUN/Creatinine Ratio 11.6; Bilirubin, Total 0.9 mg/dL (0.2-1.0); Total Protein 6.4 g/dL (6.4-8.2)
[2021-09-23 14:04] LABS: Lymphocytes % (manual) 87 (10.0-50.0); Monocytes % (manual) 2 (0-12)
[2021-09-23] MEDS ORDERED: PANTOPRAZOLE 40 MG/10 ML VIAL INJ IV ONE (19:45)
[2021-09-24] VITALS (9 sets, daily range): BP systolic 140–184; BP diastolic 65–88
[2021-09-24] MEDS ORDERED: NITROGLYCERIN 0.4 MG SL TAB SL PRN
[2021-09-24] MEDS ORDERED: VANCOMYCIN PER PHARMACY 0 MG IV SCH
[2021-09-24] MEDS ORDERED: HYDROcodone-ACET 5/325MG TAB PO PRN
[2021-09-24] MEDS ORDERED: cefTRIAXone 1GM/50ML D5W 50 ML IV ONE
[2021-09-24] MEDS ORDERED: MORPHINE SULFATE INJ 2 MG/ml SYRG IV PRN
[2021-09-24] MEDS ORDERED: DOCUSATE SOD 100 MG CAP PO PRN
[2021-09-24] MEDS ORDERED: DEXTROSE (50%) 50ML SYRG IV PRN
[2021-09-24] MEDS ORDERED: ACETAMINOPHEN 325 MG TAB PO PRN
[2021-09-24] MEDS ORDERED: ONDANSETRON HCL 4 MG/2 ML VIAL IV PRN
[2021-09-24] MEDS ORDERED: FUROSEMIDE 20 MG/2 ML VIAL IV ONE (00:15)
[2021-09-24] MEDS ORDERED: hydrALAZINE HCL 20 MG/ML VL IV PRN (02:00)
[2021-09-24] MEDS: LEVOTHYROXINE SODIUM 50 MCG TAB PO SCH (06:07)
[2021-09-24] MEDS: ACCU-CHEK COMFORT CURVE STRIP VI SCH ×4 (06:07→21:32)
[2021-09-24] MEDS: SODIUM CHLOR 0.9% PF (SALINE LOCK) 10ML VIAL/SYR IV SCH ×3 (06:07→21:31)
[2021-09-24] MEDS: InsuLIN REG 1unit/0.01ml Soln (100units/ml) SC SCH ×4 (06:25→21:46)
[2021-09-24 07:10] LABS: Hemoglobin 12.2 g/dL (13.5-17.5); Mean Corpuscular Hemoglobin 26.7 pg (28.0-32.0); Mean Corpuscular Volume 83.4 fL (80.0-100.0); Red Blood Cells 4.56 10^6/uL (4.5-5.90); Red Cell Distribution Width 16.9 % (11.8-14.3)
[2021-09-24] MEDS ORDERED: VANCOMYCIN 1GM/250ML 250 ML IV ONE ×2 (07:15)
[2021-09-24 07:19] LABS: Band Neutrophils % (manual) 0; Basophils % (manual) 0 (0.0-2.0); Blast Cells 0; Eosinophils % (manual) 0 (0-7); Metamyelocytes % 0; Myelocytes % 0; Promyelocytes % 0
[2021-09-24 07:26] LABS: Albumin 3.6 g/dL (3.4-5.0); BUN/Creatinine Ratio 12.5; Bilirubin, Total 0.9 mg/dL (0.2-1.0); Calcium 8.8 mg/dL (8.5-10.1); Total Protein 6.6 g/dL (6.4-8.2)
[2021-09-24 07:52] LABS: Lymphocytes % (manual) 83 (10.0-50.0); Monocytes % (manual) 3 (0-12); Reactive Lymphocytes 1
[2021-09-24] MEDS: FUROSEMIDE 20 MG/2 ML VIAL IV SCH (08:32)
[2021-09-24] MEDS: ASPirin 81 mg TAB PO SCH (08:33)
[2021-09-24] MEDS: ZINC SULFATE 220mg CAP or TAB PO SCH (08:33)
[2021-09-24] MEDS: FAMOTIDINE (10MG/ML) 2ML VL IV SCH (08:33)
[2021-09-24] MEDS: MULTIPLE VITAMIN TAB PO SCH (08:34)
[2021-09-24] MEDS: ASCORBIC ACID 500 MG TAB PO SCH ×2 (08:34→21:32)
[2021-09-24] MEDS: APIXABAN 5 MG TAB PO SCH ×2 (08:35→21:32)
[2021-09-24] MEDS ORDERED: cefTRIAXone 1GM/50ML D5W 50 ML IV SCH (09:00)
[2021-09-24] MEDS ORDERED: CARVEDILOL 3.125 MG TAB PO SCH (10:00)
[2021-09-24] MEDS ORDERED: VANCOMYCIN 1GM/250ML 250 ML IV SCH (10:00)
[2021-09-24] MEDS ORDERED: DOCUSATE SOD 100 MG CAP PO ONE (11:00)
[2021-09-24] MEDS ORDERED: LACTULOSE 20Gm/30ML SOLN PO ONE (11:00)
[2021-09-24] MEDS ORDERED: SUCRALFATE 1 GM/10 ML ORAL SUSP GT ONE (11:45)
[2021-09-24] MEDS ORDERED: PANTOPRAZOLE 40 MG TAB PO ONE (11:45)
[2021-09-24] MEDS ORDERED: VANCOMYCIN HCL 125MG/5ML ORAL SOL PO SCH (12:00)
[2021-09-24] MEDS: SUCRALFATE 1 GM/10 ML ORAL SUSP GT SCH (17:15)
[2021-09-24] MEDS ORDERED: METOPROLOL SUCCINATE XL 50 MG TAB PO ONE (17:30)
[2021-09-24] MEDS: VALSARTAN 80 MG TAB PO ONE ×2 (18:34→19:29)
[2021-09-24] MEDS: LACTULOSE 20Gm/30ML SOLN PO SCH (21:31)
[2021-09-24] MEDS: DOCUSATE SOD 100 MG CAP PO SCH (21:32)
[2021-09-25 05:00] VITALS: BP 153/74
[2021-09-25] MEDS: SODIUM CHLOR 0.9% PF (SALINE LOCK) 10ML VIAL/SYR IV SCH ×2 (06:50→14:00)
[2021-09-25] MEDS: SUCRALFATE 1 GM/10 ML ORAL SUSP GT SCH ×2 (06:50→11:30)
[2021-09-25 06:51] LABS: Albumin 3.6 g/dL (3.4-5.0); Calcium 8.6 mg/dL (8.5-10.1); Potassium 4.2 mmol/L (3.5-5.1)
[2021-09-25 06:54] LABS: BUN/Creatinine Ratio 16.5; Phosphorus 3.3 mg/dL (2.5-4.90)
[2021-09-25] MEDS: ACCU-CHEK COMFORT CURVE STRIP VI SCH ×2 (06:57→11:30)
[2021-09-25] MEDS: InsuLIN REG 1unit/0.01ml Soln (100units/ml) SC SCH ×2 (06:57→11:30)
[2021-09-25] MEDS: LEVOTHYROXINE SODIUM 50 MCG TAB PO SCH (06:57)
[2021-09-25] MEDS ORDERED: METOPROLOL TARTRATE 50 MG TAB PO SCH (08:00)
[2021-09-25 09:00] VITALS: BP 184/89
[2021-09-25] MEDS: FUROSEMIDE 20 MG/2 ML VIAL IV SCH (09:44)
[2021-09-25] MEDS: ASPirin 81 mg TAB PO SCH (09:45)
[2021-09-25] MEDS: LACTULOSE 20Gm/30ML SOLN PO SCH (09:45)
[2021-09-25] MEDS: FAMOTIDINE (10MG/ML) 2ML VL IV SCH (09:45)
[2021-09-25] MEDS: ZINC SULFATE 220mg CAP or TAB PO SCH (09:46)
[2021-09-25] MEDS: DOCUSATE SOD 100 MG CAP PO SCH (09:46)
[2021-09-25] MEDS: APIXABAN 5 MG TAB PO SCH (09:47)
[2021-09-25] MEDS: MULTIPLE VITAMIN TAB PO SCH (09:47)
[2021-09-25] MEDS: ASCORBIC ACID 500 MG TAB PO SCH (09:48)
[2021-09-25] MEDS ORDERED: PANTOPRAZOLE 40 MG TAB PO SCH (10:00)
[2021-09-25] MEDS ORDERED: LOSARTAN POTASSIUM 50 MG TAB PO SCH (10:00)
[2021-09-25 12:56] VITALS: BP 154/85
== END 2021-09-25 16:00 | disposition home or self-care (01) | DRG 392 ==
LOC: ER 12:11 → OVERFLOW 23:56 → EAST 09-24 00:35
PROVIDERS: ADMIT Nurse Practitioner Family; ATTEND Nurse Practitioner Family
DX: K21.9 Gastro-esophageal reflux disease without esophagitis (principal); C95.90 Leukemia, unspecified not having achieved remission; E87.1 Hypo-osmolality and hyponatremia; I13.0 Hypertensive heart and chronic kidney disease with heart failure and stage 1 through stage 4 chronic kidney disease, or unspecified chronic kidney disease; I50.20 Unspecified systolic (congestive) heart failure; E11.22 Type 2 diabetes mellitus with diabetic chronic kidney disease; E78.5 Hyperlipidemia, unspecified; I25.10 Atherosclerotic heart disease of native coronary artery without angina pectoris; I48.91 Unspecified atrial fibrillation; K59.00 Constipation, unspecified; N18.9 Chronic kidney disease, unspecified; Z20.822 Contact with and (suspected) exposure to COVID-19; Z90.49 Acquired absence of other specified parts of digestive tract; Z95.0 Presence of cardiac pacemaker; Z95.1 Presence of aortocoronary bypass graft
CPT/HCPCS: 36415; 74176; 80053; 80069; 82150; 82962; 83036; 83690; 83735; 83880; 85007; 85027; 87040; 87081; 93306; 96365; 96367; G0378; J0696; J1815; J3490

== ENCOUNTER → 2023-04-16 | Outpatient (CLI) | payer MEDICARE, OTHER ==
[~2023-04-16] MED LIST changes: +GABA-1308 PO; -GABA100C9 PO; -SIMV-8 PO; +SIMV20TA20 PO
[2023-04-16 11:03] LABS: Hematocrit 42.1 % (41.0-53.0); Hemoglobin 13.4 g/dL (13.5-17.5); Mean Corpuscular Hgb Conc. 31.7 g/dL (32.0-36.0); Mean Corpuscular Volume 94.7 fL (80.0-100.0); Red Blood Cells 4.45 10^6/uL (4.5-5.90); Red Cell Distribution Width 15.8 % (11.8-14.3)
[2023-04-16 11:19] LABS: INR 1.09 (0.9-1.15); Partial Thromboplastin Time 28.2 SEC (24.5-34.5); Prothrombin Time 11.4 sec (9.3-11.8); Urine Bacteria FEW /hpf (None Seen); Urine Blood Negative /uL (Negative); Urine Clarity Clear (Clear); Urine Color Yellow (Yellow); Urine Hyaline Cast FEW /lpf (0 - 2); Urine Protein, UAD TRACE (Negative); Urine Specific Gravity 1.018 (1.001-1.035); Urine WBC 1 /hpf (0 - 3)
[2023-04-16 11:35] LABS: Creatinine, Urine 131.45 mg/dL (30.0-125.0)
[2023-04-16 11:38] LABS: Prostate Specific Antigen 4.65 ng/mL (0.0-4.0)
[2023-04-16 11:39] LABS: Alanine Aminotransferase 20 U/L (7-40); Albumin 4.2 g/dL (3.2-4.8); Alkaline Phosphatase 142 U/L (46-116); Anion Gap 5 (5-15); Aspartate Aminotransferase 28 U/L (13-40); Blood Urea Nitrogen 19 mg/dL (9-23); Calcium 9.6 mg/dL (8.5-10.1); Carbon Dioxide 32 mmol/L (20-30); Chloride 107 mmol/L (98-107); Glucose 92 mg/dL (74-106); LDL Cholesterol 72 mg/dL (< 100); Potassium 4.7 mmol/L (3.5-5.1); Sodium 144 mmol/L (136-145); Triglycerides 77 mg/dL (< 150)
[2023-04-16 11:40] LABS: Cholesterol 133 mg/dL (< 200); HDL Cholesterol 50 mg/dL (40-59)
[2023-04-16 11:41] LABS: Bilirubin, Total 0.9 mg/dL (0.2-1.0); Folate (Folic Acid) 21.96 ng/mL (>5.38); Thyroid Stimulating Hormone 1.56 uIU/mL (0.55-4.78); Total Protein 6.6 g/dL (5.7-8.2)
[2023-04-16 11:42] LABS: Free T4 (Free Thyroxine) 1.27 ng/dL (0.89-1.76)
[2023-04-16 11:44] LABS: % Iron Saturation 28.3 % (20-55)
[2023-04-16 12:26] LABS: Erythrocyte Sedimentation Rate 7 mm/hr (0-20)
[2023-04-16 13:23] LABS: White Blood Cell 43.7 10^3/uL (4.4-10.8)
[2023-04-16 13:26] LABS: Band Neutrophils % (manual) 0; Basophils % (manual) 0 (0.0-2.0); Blast Cells 0; Eosinophils % (manual) 0 (0-7); Metamyelocytes % 0; Monocytes % (manual) 0 (0-12); Myelocytes % 0; Promyelocytes % 0
[2023-04-16 14:46] LABS: Lymphocytes % (manual) 4 (10.0-50.0); Platelet Estimate Adequate; Reactive Lymphocytes 91
[2023-04-17 08:06] LABS: Immunoglobulin A 56 mg/dL (61-437); Immunoglobulin G, Serum 1105 mg/dL (603-1613); Immunoglobulin M 357 mg/dL (15-143); PSA Free 1.36 ng/mL; Prostate Specific Antigen 4.8 ng/mL (0.0-4.0)
[2023-04-17 09:06] LABS: Albumin 3.4 g/dL (2.9-4.4); Alpha-1-Globulin 0.3 g/dL (0.0-0.4); Alpha-2-Globulin 0.6 g/dL (0.4-1.0); Gamma Globulin 1.4 g/dL (0.4-1.8); Globulin Total 3.2 g/dL (2.2-3.9); Protein Total Serum 6.6 g/dL (6.0-8.5)
== END | disposition home or self-care (01) ==
LOC: LAB 10:21
PROVIDERS: ATTEND Internal Medicine
DX: C91.10 Chronic lymphocytic leukemia of B-cell type not having achieved remission (principal); D64.9 Anemia, unspecified; I11.0 Hypertensive heart disease with heart failure; I50.9 Heart failure, unspecified; I25.10 Atherosclerotic heart disease of native coronary artery without angina pectoris; N40.0 Benign prostatic hyperplasia without lower urinary tract symptoms; Z79.899 Other long term (current) drug therapy
CPT/HCPCS: 36415; 80053; 80061; 81001; 82043; 82570; 82607; 82746; 82784; 83036; 83540; 83550; 83615; 83880; 84153; 84154; 84155; 84165; 84439; 84443; 85007; 85027; 85610; 85652; 85730; 86334

== ENCOUNTER 2023-04-26 12:31 | Inpatient (IN) | payer MEDICARE, OTHER ==
[2023-04-25 23:20] VITALS: PULSE 95; RESP 19; O2SAT 97
[~2023-04-26] VITALS: Ht 154.9 cm; Wt 64.6 kg
[2023-04-26 01:00] VITALS: BP 127/66; PULSE 95; RESP 19; TEMP 98.3; O2SAT 97
[2023-04-26 13:52] VITALS: PULSE 119; RESP 20; O2SAT 96
[2023-04-26] MEDS: SODIUM CHLORIDE 0.9% 500 ML IVB ONE (14:15)
[2023-04-26] MEDS: MORPHINE SULFATE 4 MG/ML SYR/VIAL IV ONE (14:16)
[2023-04-26] MEDS: ONDANSETRON HCL 4 MG/2 ML VIAL IV ONE (14:16)
[2023-04-26] MEDS: dilTIAZem 25 MG/5 ML VIAL IV ONE (14:17)
[2023-04-26 14:28] LABS: Hematocrit 42.6 % (41.0-53.0); Hemoglobin 13.7 g/dL (13.5-17.5); Mean Corpuscular Hemoglobin 30.5 pg (28.0-32.0); Mean Corpuscular Hgb Conc. 32.1 g/dL (32.0-36.0); Red Blood Cells 4.48 10^6/uL (4.5-5.90); Red Cell Distribution Width 15.4 % (11.8-14.3)
[2023-04-26 14:47] LABS: Alanine Aminotransferase 17 U/L (7-40); Albumin 3.9 g/dL (3.2-4.8); Alkaline Phosphatase 142 U/L (46-116); Anion Gap 9 (5-15); Aspartate Aminotransferase 29 U/L (13-40); BUN/Creatinine Ratio 14.7 (10.0-20.0); Bilirubin, Total 1.7 mg/dL (0.2-1.0); Blood Urea Nitrogen 17 mg/dL (9-23); Calcium 9.2 mg/dL (8.7-10.4); Carbon Dioxide 27 mmol/L (20-30); Chloride 102 mmol/L (98-107); Glucose 127 mg/dL (74-106); Lipase 28 U/L (12-53); Potassium 4.5 mmol/L (3.5-5.1); Sodium 138 mmol/L (136-145)
[2023-04-26 14:48] LABS: Total Protein 6.4 g/dL (5.7-8.2)
[2023-04-26 14:54] LABS: White Blood Cell 48.5 10^3/uL (4.4-10.8)
[2023-04-26 14:56] LABS: Band Neutrophils % (manual) 0; Basophils % (manual) 0 (0.0-2.0); Blast Cells 0; Eosinophils % (manual) 0 (0-7); Metamyelocytes % 0; Myelocytes % 0; Promyelocytes % 0
[2023-04-26 16:18] LABS: Lymphocytes % (manual) 71 (10.0-50.0); Monocytes % (manual) 3 (0-12); Platelet Estimate Adequate; Reactive Lymphocytes 7
[2023-04-26] MEDS ORDERED: cloNIDine HCL 0.1 MG TAB PO PRN (16:45)
[2023-04-26] MEDS ORDERED: DOCUSATE SOD 100 MG CAP PO PRN (16:45)
[2023-04-26] MEDS ORDERED: DEXTROSE (50%) 50ML SYRG IV PRN (16:45)
[2023-04-26] MEDS ORDERED: AZITHROMYCIN 500MG/ 250ML 250 ML IV ONE (16:45)
[2023-04-26] MEDS: cefTRIAXone 1GM/50ML D5W 50 ML IV ONE (17:56)
[2023-04-26] MEDS: InsuLIN REG 1unit/0.01ml Soln (100units/ml) SC SCH (18:02)
[2023-04-26] MEDS: ACCU-CHEK COMFORT CURVE STRIP VI SCH (18:02)
[2023-04-26] MEDS: METOPROLOL SUCCINATE XL 50 MG TAB PO SCH (18:16)
[2023-04-26] MEDS: DOXYCYCLINE 100MG/250ML 250 ML IV SCH (18:49)
[2023-04-26 19:30] VITALS: PULSE 97; RESP 12; O2SAT 99
[2023-04-26] MEDS: SUCRALFATE 1 GM TAB PO SCH (21:26)
[2023-04-26] MEDS: ATORVASTATIN 20 MG TAB PO SCH (21:26)
[2023-04-26 23:20] VITALS: PULSE 95; RESP 19; O2SAT 97
[2023-04-27 03:19] LABS: Urine Bacteria NONE SEEN /hpf (None Seen); Urine Blood Negative /uL (Negative); Urine Clarity HAZY (Clear); Urine Color Yellow (Yellow); Urine Hyaline Cast MANY /lpf (0 - 2); Urine Mucus FEW (None Seen); Urine Protein, UAD TRACE (Negative); Urine Specific Gravity 1.021 (1.001-1.035); Urine WBC 2 /hpf (0 - 3); Urine pH 5.5 (5.0-8.0)
[2023-04-27 05:00] VITALS: BP 134/68; PULSE 122; RESP 16; TEMP 99.9; O2SAT 96
[2023-04-27 07:00] LABS: Hemoglobin 13.1 g/dL (13.5-17.5); Mean Corpuscular Hemoglobin 30.8 pg (28.0-32.0)
[2023-04-27] MEDS: LEVOTHYROXINE SODIUM 50 MCG TAB PO SCH (07:00)
[2023-04-27 07:03] LABS: Hematocrit 42.3 % (41.0-53.0); Mean Corpuscular Volume 99.3 fL (80.0-100.0); Red Blood Cells 4.26 10^6/uL (4.5-5.90); Red Cell Distribution Width 16.6 % (11.8-14.3)
[2023-04-27 07:20] LABS: Band Neutrophils % (manual) 0; Basophils % (manual) 0 (0.0-2.0); Blast Cells 0; Eosinophils % (manual) 0 (0-7); Metamyelocytes % 0; Myelocytes % 0; Promyelocytes % 0; White Blood Cell 46.1 10^3/uL (4.4-10.8)
[2023-04-27 07:35] LABS: Chloride 104 mmol/L (98-107); Potassium 4.6 mmol/L (3.5-5.1); Sodium 138 mmol/L (136-145)
[2023-04-27 07:38] LABS: Anion Gap 6 (5-15); Carbon Dioxide 28 mmol/L (20-30)
[2023-04-27 07:39] LABS: Calcium 8.6 mg/dL (8.5-10.1)
[2023-04-27 07:43] LABS: Alkaline Phosphatase 139 U/L (46-116); Glucose 106 mg/dL (74-106)
[2023-04-27 07:44] LABS: Blood Urea Nitrogen 26 mg/dL (9-23)
[2023-04-27 07:45] LABS: Alanine Aminotransferase 19 U/L (7-40); Albumin 3.4 g/dL (3.2-4.8); Aspartate Aminotransferase 29 U/L (13-40)
[2023-04-27 07:46] LABS: Bilirubin, Total 0.6 mg/dL (0.2-1.0); Total Protein 5.2 g/dL (5.7-8.2)
[2023-04-27 08:07] LABS: Lymphocytes % (manual) 69 (10.0-50.0); Monocytes % (manual) 3 (0-12); Reactive Lymphocytes 6
[2023-04-27 08:08] LABS: Platelet Estimate Decreased
[2023-04-27 08:35] VITALS: BP 139/67; PULSE 112; RESP 18; TEMP 98.2; O2SAT 94
[2023-04-27] MEDS ORDERED: AZITHROMYCIN 500MG/ 250ML 250 ML IV SCH (10:00)
[2023-04-27] MEDS: FUROSEMIDE 40 MG TAB PO SCH (11:58)
[2023-04-27] MEDS: FAMOTIDINE 20 MG TAB PO SCH (11:59)
[2023-04-27] MEDS: PANTOPRAZOLE 40 MG TAB PO SCH (11:59)
[2023-04-27] MEDS: ISOSORBIDE MONONITRATE ER 60 MG TAB PO SCH (11:59)
[2023-04-27] MEDS: CILOSTAZOL 100 MG TAB PO SCH (12:00)
[2023-04-27] MEDS: ENOXAPARIN SOD 40 MG/0.4 ML SYRINGE SC SCH (12:01)
[2023-04-27] MEDS: cefTRIAXone 1GM/50ML D5W 50 ML IV SCH (12:16)
[2023-04-27 13:00] VITALS: BP 152/76; PULSE 120; RESP 18; TEMP 97.9; O2SAT 96
[2023-04-27] MEDS ORDERED: LEVO100T8 PO (16:02)
[2023-04-27] MEDS ORDERED: MET50T PO (16:02)
[2023-04-27] MEDS ORDERED: POTA1TAB61 PO (16:04)
[2023-04-27] MEDS ORDERED: LOSA100T58 PO (16:04)
[2023-04-27] MEDS ORDERED: APIX2.5T PO (16:04)
[2023-04-27 17:00] VITALS: BP 126/72; PULSE 102; RESP 16; TEMP 98.3; O2SAT 99
[2023-04-27 20:00] VITALS: PULSE 154; RESP 19; O2SAT 95
[2023-04-27] MEDS: PIPERACILLIN-TAZOB 3.375GM 100 ML IV SCH (20:00)
[2023-04-27 22:00] VITALS: BP 140/85; PULSE 114; RESP 20; TEMP 98.2; O2SAT 94
[2023-04-27] MEDS: AMIODARONE HCL 200 MG TAB PO SCH (23:10)
[2023-04-27] MEDS: ENOXAPARIN SOD 80 MG/0.8ML SYRINGE SC SCH (23:11)
[2023-04-28] VITALS (7 sets, daily range): BP systolic 122–158; BP diastolic 65–89; PULSE 75–131; RESP 18–20; TEMP 98–99; O2SAT 95–98
[2023-04-28] MEDS: guaiFENesin-DM 100/10mg/5ml SYR PO PRN (00:52)
[2023-04-28] MEDS: MORPHINE SULFATE INJ 2 MG/ml SYRG IV PRN (03:51)
[2023-04-28] MEDS: ONDANSETRON HCL 4 MG/2 ML VIAL IV PRN (03:52)
[2023-04-28 05:30] LABS: Hemoglobin 12.8 g/dL (13.5-17.5); Mean Corpuscular Hemoglobin 30.1 pg (28.0-32.0); Mean Corpuscular Hgb Conc. 31.4 g/dL (32.0-36.0)
[2023-04-28 05:34] LABS: Hematocrit 40.7 % (41.0-53.0); Mean Corpuscular Volume 95.8 fL (80.0-100.0); Red Blood Cells 4.25 10^6/uL (4.5-5.90); Red Cell Distribution Width 15.4 % (11.8-14.3)
[2023-04-28 05:35] LABS: White Blood Cell 74.5 10^3/uL (4.4-10.8)
[2023-04-28 05:36] LABS: Band Neutrophils % (manual) 0; Basophils % (manual) 0 (0.0-2.0); Blast Cells 0; Eosinophils % (manual) 0 (0-7); Metamyelocytes % 0; Myelocytes % 0; Promyelocytes % 0
[2023-04-28 05:39] LABS: Calcium 9.1 mg/dL (8.7-10.4); Chloride 101 mmol/L (98-107); Potassium 4.4 mmol/L (3.5-5.1); Sodium 135 mmol/L (136-145)
[2023-04-28 05:40] LABS: Anion Gap 10 (5-15); Carbon Dioxide 24 mmol/L (20-30)
[2023-04-28 05:45] LABS: BUN/Creatinine Ratio 19.2 (10.0-20.0); Blood Urea Nitrogen 19 mg/dL (9-23); Glucose 125 mg/dL (74-106); Magnesium 1.8 mg/dL (1.6-2.6)
[2023-04-28 06:04] LABS: Lymphocytes % (manual) 35 (10.0-50.0); Monocytes % (manual) 2 (0-12); Reactive Lymphocytes 45
[2023-04-28 06:05] LABS: Platelet Estimate Adequate
[2023-04-28] MEDS: FUROSEMIDE 40 MG/4 ML VIAL IV SCH (06:08)
[2023-04-28 06:26] LABS: Hematocrit 38.5 % (41.0-53.0); Hemoglobin 12.1 g/dL (13.5-17.5); Mean Corpuscular Hemoglobin 29.9 pg (28.0-32.0); Mean Corpuscular Hgb Conc. 31.5 g/dL (32.0-36.0); Mean Corpuscular Volume 94.9 fL (80.0-100.0); Red Blood Cells 4.06 10^6/uL (4.5-5.90); Red Cell Distribution Width 15.5 % (11.8-14.3)
[2023-04-28 06:33] LABS: White Blood Cell 56.7 10^3/uL (4.4-10.8)
[2023-04-28 06:35] LABS: Band Neutrophils % (manual) 0; Basophils % (manual) 0 (0.0-2.0); Eosinophils % (manual) 0 (0-7); Metamyelocytes % 0; Myelocytes % 0; Promyelocytes % 0; Reactive Lymphocytes 0
[2023-04-28 07:54] LABS: Platelet Estimate Adequate
[2023-04-28 08:00] LABS: Blast Cells 1; Lymphocytes % (manual) 76 (10.0-50.0); Monocytes % (manual) 1 (0-12)
[2023-04-28] MEDS ORDERED: PIPERACILLIN-TAZOB 3.375GM 100 ML IV SCH (15:30)
[2023-04-28] MEDS: MAGNESIUM OXIDE 400 MG TAB PO ONE (15:36)
[2023-04-28] MEDS: DOXYCYCLINE 100MG/250ML 250 ML IV SCH (15:50)
[2023-04-28] MEDS: PIPERACILLIN-TAZOB 3.375GM 100 ML IV SCH (16:30)
[2023-04-28] MEDS: MAGNESIUM OXIDE 400 MG TAB PO SCH (22:57)
[2023-04-29] VITALS (7 sets, daily range): BP systolic 115–126; BP diastolic 63–75; PULSE 87–115; RESP 18–20; TEMP 98.6–98.7; O2SAT 92–96
[2023-04-29] MEDS: MELATONIN 5 MG TAB PO PRN (00:40)
[2023-04-29] MEDS: LORazepam 2MG/ML-1ML VIAL IV ONE (03:30)
[2023-04-29] MEDS: LORazepam 2MG/ML-1ML VIAL IV PRN (03:44)
[2023-04-29 05:05] LABS: Anion Gap 4 (5-15); Calcium 8.6 mg/dL (8.7-10.4); Carbon Dioxide 30 mmol/L (20-30); Chloride 103 mmol/L (98-107); Potassium 3.9 mmol/L (3.5-5.1); Sodium 137 mmol/L (136-145)
[2023-04-29 05:11] LABS: BUN/Creatinine Ratio 18.9 (10.0-20.0); Blood Urea Nitrogen 18 mg/dL (9-23); Glucose 146 mg/dL (74-106); Magnesium 1.9 mg/dL (1.6-2.6)
[2023-04-29 05:22] LABS: Hematocrit 34.8 % (41.0-53.0); Hemoglobin 11.2 g/dL (13.5-17.5); Mean Corpuscular Hemoglobin 30.4 pg (28.0-32.0); Mean Corpuscular Hgb Conc. 32.2 g/dL (32.0-36.0); Mean Corpuscular Volume 94.4 fL (80.0-100.0); Red Blood Cells 3.68 10^6/uL (4.5-5.90); Red Cell Distribution Width 15.2 % (11.8-14.3)
[2023-04-29 05:47] LABS: White Blood Cell 47.9 10^3/uL (4.4-10.8)
[2023-04-29 05:49] LABS: Basophils % (manual) 0 (0.0-2.0); Blast Cells 0; Eosinophils % (manual) 0 (0-7); Metamyelocytes % 0; Promyelocytes % 0; Reactive Lymphocytes 0
[2023-04-29 14:36] LABS: Band Neutrophils % (manual) 2; Lymphocytes % (manual) 66 (10.0-50.0); Monocytes % (manual) 3 (0-12); Myelocytes % 1; Platelet Estimate Adequate
[2023-04-29] MEDS: DIGOXIN (250MCG/ML) 2 ML AMPULE IV ONE (16:52)
[2023-04-30] VITALS (9 sets, daily range): BP systolic 119–133; BP diastolic 60–71; PULSE 81–111; RESP 17–20; TEMP 98.5–99.3; O2SAT 91–95
[2023-04-30 05:56] LABS: Hemoglobin 11.7 g/dL (13.5-17.5)
[2023-04-30 05:58] LABS: Chloride 100 mmol/L (98-107); Hematocrit 36.5 % (41.0-53.0); Potassium 4.2 mmol/L (3.5-5.1); Red Blood Cells 3.89 10^6/uL (4.5-5.90); Red Cell Distribution Width 15.1 % (11.8-14.3); Sodium 139 mmol/L (136-145)
[2023-04-30 05:59] LABS: Anion Gap 4 (5-15); Calcium 8.6 mg/dL (8.5-10.1); Carbon Dioxide 35 mmol/L (20-30)
[2023-04-30 06:04] LABS: BUN/Creatinine Ratio 21.6 (10.0-20.0); Blood Urea Nitrogen 22 mg/dL (9-23); Glucose 124 mg/dL (74-106)
[2023-04-30 06:07] LABS: INR 1.14 (0.9-1.15); Partial Thromboplastin Time 34.5 SEC (24.5-34.5); Prothrombin Time 11.9 sec (9.3-11.8)
[2023-04-30 06:26] LABS: White Blood Cell 54.1 10^3/uL (4.4-10.8)
[2023-04-30 06:27] LABS: Band Neutrophils % (manual) 0; Basophils % (manual) 0 (0.0-2.0); Blast Cells 0; Eosinophils % (manual) 0 (0-7); Metamyelocytes % 0; Myelocytes % 0; Promyelocytes % 0
[2023-04-30 08:13] LABS: Lymphocytes % (manual) 67 (10.0-50.0); Monocytes % (manual) 1 (0-12); Platelet Estimate Adequate; Reactive Lymphocytes 6; Smudge Cells 25 /100 WBC
[2023-04-30] MEDS: DIGOXIN 0.125 MG TAB PO ONE (17:06)
[2023-05-01] VITALS (7 sets, daily range): BP systolic 134–158; BP diastolic 66–82; PULSE 90–111; RESP 16–18; TEMP 98.1–99.1; O2SAT 92–100
[2023-05-01 06:31] LABS: Mean Corpuscular Hemoglobin 30.2 pg (28.0-32.0)
[2023-05-01 06:35] LABS: Hemoglobin 11.9 g/dL (13.5-17.5); Mean Corpuscular Hgb Conc. 32.1 g/dL (32.0-36.0); Mean Corpuscular Volume 94.1 fL (80.0-100.0); Red Blood Cells 3.93 10^6/uL (4.5-5.90); Red Cell Distribution Width 15.1 % (11.8-14.3)
[2023-05-01 06:40] LABS: Anion Gap 7 (5-15); Calcium 8.6 mg/dL (8.7-10.4); Carbon Dioxide 31 mmol/L (20-30); Chloride 97 mmol/L (98-107); Sodium 135 mmol/L (136-145)
[2023-05-01 06:46] LABS: BUN/Creatinine Ratio 17.5 (10.0-20.0); Blood Urea Nitrogen 17 mg/dL (9-23); Glucose 174 mg/dL (74-106); Magnesium 1.8 mg/dL (1.6-2.6)
[2023-05-01 06:51] LABS: White Blood Cell 57.2 10^3/uL (4.4-10.8)
[2023-05-01 06:52] LABS: Basophils % (manual) 0 (0.0-2.0); Blast Cells 0; Metamyelocytes % 0; Myelocytes % 0; Promyelocytes % 0
[2023-05-01] MEDS: DIGOXIN 0.125 MG TAB PO SCH (09:12)
[2023-05-01 10:59] LABS: Band Neutrophils % (manual) 3; Eosinophils % (manual) 2 (0-7); Lymphocytes % (manual) 36 (10.0-50.0); Monocytes % (manual) 2 (0-12); Reactive Lymphocytes 40; Smudge Cells 9 /100 WBC
[2023-05-01 11:20] LABS: Platelet Estimate Adequate
[2023-05-02 05:00] VITALS: BP 138/71; PULSE 90; RESP 18; TEMP 98.1; O2SAT 94
[2023-05-02 06:35] LABS: Hematocrit 37.4 % (41.0-53.0); Mean Corpuscular Hemoglobin 30.3 pg (28.0-32.0); Mean Corpuscular Hgb Conc. 32.1 g/dL (32.0-36.0); Mean Corpuscular Volume 94.3 fL (80.0-100.0); Red Blood Cells 3.97 10^6/uL (4.5-5.90); Red Cell Distribution Width 15.1 % (11.8-14.3)
[2023-05-02 06:40] LABS: Anion Gap 5 (5-15); Carbon Dioxide 34 mmol/L (20-30); Chloride 99 mmol/L (98-107); Potassium 3.8 mmol/L (3.5-5.1); Sodium 138 mmol/L (136-145)
[2023-05-02 06:41] LABS: Calcium 8.8 mg/dL (8.7-10.4)
[2023-05-02 06:46] LABS: BUN/Creatinine Ratio 17.7 (10.0-20.0); Blood Urea Nitrogen 17 mg/dL (9-23); Glucose 147 mg/dL (74-106)
[2023-05-02 06:47] LABS: Magnesium 2.1 mg/dL (1.6-2.6)
[2023-05-02 07:12] LABS: White Blood Cell 65.1 10^3/uL (4.4-10.8)
[2023-05-02 07:14] LABS: Band Neutrophils % (manual) 0; Basophils % (manual) 0 (0.0-2.0); Blast Cells 0; Eosinophils % (manual) 0 (0-7); Metamyelocytes % 0; Myelocytes % 0; Promyelocytes % 0
[2023-05-02 08:00] VITALS: PULSE 90; PULSE 93; RESP 20; O2SAT 93
[2023-05-02 08:05] LABS: Lymphocytes % (manual) 58 (10.0-50.0); Monocytes % (manual) 3 (0-12); Platelet Estimate Adequate; RBC Morphology Normal; Reactive Lymphocytes 11
[2023-05-02 08:07] LABS: Smudge Cells 15 /100 WBC
[2023-05-02 09:00] VITALS: BP 146/67; PULSE 93; RESP 20; TEMP 98.1; O2SAT 94
[2023-05-02 13:00] VITALS: BP 152/82; PULSE 92; RESP 20; TEMP 98.6; O2SAT 98
[2023-05-02] MEDS ORDERED: AMIO400T3 PO (16:21)
[2023-05-02] MEDS ORDERED: LEVO500T91 PO (16:21)
[2023-05-02] MEDS ORDERED: CLIN-203 PO (16:21)
[2023-05-02 17:00] VITALS: BP 130/62; PULSE 82; RESP 18; TEMP 98.3; O2SAT 96
[2023-05-02 18:25] VITALS: BP 130/62; PULSE 85; RESP 20; TEMP 36.8; O2SAT 94
== END 2023-05-02 19:50 | disposition hospice, home (50) | DRG 871 ==
LOC: ER 12:31 → TELE 16:48 → TELE-CENTR 22:24
PROVIDERS: ADMIT Nurse Practitioner Family; ATTEND Internal Medicine
DX: A41.01 Sepsis due to Methicillin susceptible Staphylococcus aureus (principal); I50.31 Acute diastolic (congestive) heart failure; J15.211 Pneumonia due to Methicillin susceptible Staphylococcus aureus; I13.0 Hypertensive heart and chronic kidney disease with heart failure and stage 1 through stage 4 chronic kidney disease, or unspecified chronic kidney disease; C91.10 Chronic lymphocytic leukemia of B-cell type not having achieved remission; J81.1 Chronic pulmonary edema; I47.20 Ventricular tachycardia, unspecified; Z66 Do not resuscitate; I25.10 Atherosclerotic heart disease of native coronary artery without angina pectoris; N18.30 Chronic kidney disease, stage 3 unspecified; K21.9 Gastro-esophageal reflux disease without esophagitis; E11.22 Type 2 diabetes mellitus with diabetic chronic kidney disease; E11.65 Type 2 diabetes mellitus with hyperglycemia; Z53.29 Procedure and treatment not carried out because of patient's decision for other reasons; I48.91 Unspecified atrial fibrillation; E78.5 Hyperlipidemia, unspecified; E03.9 Hypothyroidism, unspecified; D64.9 Anemia, unspecified; K76.89 Other specified diseases of liver; I27.20 Pulmonary hypertension, unspecified; Z79.01 Long term (current) use of anticoagulants; Z95.1 Presence of aortocoronary bypass graft; Z95.0 Presence of cardiac pacemaker; Z90.49 Acquired absence of other specified parts of digestive tract; Z79.899 Other long term (current) drug therapy; Z82.49 Family history of ischemic heart disease and other diseases of the circulatory system
CPT/HCPCS: 36415; 71045; 71250; 74176; 76604; 80048; 80053; 81001; 82962; 83605; 83615; 83690; 83735; 83880; 84443; 84484; 85007; 85027; 85610; 85730; 87040; 87070; 87077; 87081; 87186; 87205; 92610; 93005; 93306; 96361; 96365; 96367; 96375; 99291; A4565; G0378; J1815; J2405; J2543; J3490